=== PATIENT | male | born 1955 | race Hispanic/Latino ===

== ENCOUNTER 2017-02-22 18:14 | Emergency (ER) | payer OTHER ==
[2017-02-22 18:31] VITALS: BP 146/73; PULSE 75; RESP 20; TEMP 98.3; O2SAT 98
--- NOTE | 2017-02-22 20:12 | ED PDOC ---
HPI: Back Time Seen by Provider: 02/22/17 18:39 Chief Complaint (Nursing): Back Pain Chief Complaint (Provider): Back pain History Per: Patient History/Exam Limitations: no limitations Onset/Duration Of Symptoms: Days (1) Additional Complaint(s): Patient is a 61 y/o male with no significant past medical history presenting to the emergency department for lower right back pain that radiates to his neck and down to his feet following a fall. 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 He tried to save his fall by grabbing onto the ladder with his left arm. This motion caused him to twist his back. He landed with both feet flat on the ground and he describes the resulting back pain as a shocking and electric sensation. Denies feeling this pain previously and denies loss of consciousness , head injury, chest pain, shortness of breath, bowel or bladder incontinence, extremity weakness, or other complaints. Dr. Jama Blair Past Medical History Reviewed: Historical Data, Nursing Documentation, Vital Signs Vital Signs: Last Vital Signs Temp 98.3 F 02/22/17 18:27 Pulse 75 02/22/17 18:27 Resp 20 02/22/17 18:27 BP 146/73 02/22/17 18:27 Pulse Ox 98 02/22/17 18:27 - Medical History PMH: No Chronic Diseases - Family History Family History: States: No Known Family Hx - Home Medications Home Medications: Ambulatory Orders Medication Instructions Recorded Cyclobenzaprine [Cyclobenzaprine 10 mg PO TID PRN #15 tab 02/22/17 HCl] Meloxicam [Mobic] 15 mg PO DAILY #20 tab 02/22/17 - Allergies Allergies/Adverse Reactions: Allergies Allergy/AdvReac Type Severity Reaction Status Date / Time No Known Allergies Allergy Verified 02/22/17 18:25 Review of Systems ROS Statement: Except As Marked, All Systems Reviewed And Found Negative Cardiovascular: Negative for: Chest Pain Respiratory: Negative for: Shortness of Breath Genitourinary Male: Negative for: Incontinence (bowel or bladder) Musculoskeletal: Positive for: Back Pain (right lower that radiates to neck and feet) Neurological: Positive for: Weakness (extremity). Negative for: Other (loss of consciousness or head injury) Physical Exam - Reviewed Nursing Documentation Reviewed: Yes Vital Signs Reviewed: Yes - Physical Exam Appears: Positive for: Well, Non-toxic, Uncomfortable (mild painful distress) Head Exam: Positive for: ATRAUMATIC, NORMAL INSPECTION, NORMOCEPHALIC Skin: Positive for: Normal Color, Warm, Dry Eye Exam: Positive for: Normal appearance Neck: Positive for: Normal, Painless ROM Cardiovascular/Chest: Positive for: Regular Rate, Rhythm. Negative for: Murmur Respiratory: Positive for: Normal Breath Sounds. Negative for: Accessory Muscle Use, Respiratory Distress Gastrointestinal/Abdominal: Positive for: Soft. Negative for: Tenderness, Mass , Guarding Back: Positive for: Normal Inspection, Vertebral Tenderness (lumbar), Other ( right paralumbar tenderness). Negative for: Decreased ROM Extremity: Positive for: Normal ROM. Negative for: Tenderness, Pedal Edema, Deformity, Swelling Neurologic/Psych: Positive for: Alert, surgical first assistant II-XII, Oriented (x3), Gait. Negative for: Motor/Sensory Deficits - ECG O2 Sat by Pulse Oximetry: 98 (RA) Pulse Ox Interpretation: Normal Medical Decision Making Medical Decision Making: Time: 19:29 Initial impression: back pain Initial plan: Flexeril 10 mg PO Toradol 60 mg IM L-spine X-ray Reevaluation XR L spine : no fracture, +decrease in joint space in L5-S1, +loss of normal curvature of the spine, as read by PA Patient advised that official radiology read of XR is still pending and will call the patient if there is any discrepancy within 24 hours. On reevaluation, patient is sitting comfortably in chair in no acute distress, reports improvement of his back pain. Patient reports no headache, dizziness, chest pain, shortness of breath, lower extremity weakness or numbness, has no additional complaints at this time. X-ray results discussed with the patient in great detail. Diagnosis of sciatica and back strain discussed with the patient in great detail. Based on history, exam and diagnostic results plan will be for outpatient follow -up with PMD. Patient instructed to follow up with primary care physician in 1-2 days without fail. Advised to take medication as prescribed. Return to the emergency room at any time for any new or worsening symptoms. Patient states he fully agrees with and understands discharge instructions. States that he agrees with the plan and disposition. Verbalized and repeated discharge instructions and plan. I have given the patient opportunity to ask any additional questions. ~ Scribe Attestation: Documented by Sheila Echevarria, acting as a scribe for JULIO Ji. Provider Scribe Attestation: All medical record entries made by the Scribe were at my direction and personally dictated by me. I have reviewed the chart and agree that the record accurately reflects my personal performance of the history, physical exam, medical decision making, and the department course for this patient. I have also personally directed, reviewed, and agree with the discharge instructions and disposition. Disposition - Clinical Impression Clinical Impression: Back pain, Sciatica - Patient ED Disposition Is Patient to be Admitted: No Counseled Patient/Family Regarding: Studies Performed, Diagnosis, Need For Followup, Rx Given - Disposition Referrals: [facility] [Outside] Disposition: Routine/Home Disposition Time: 20:30 Condition: IMPROVED Prescriptions: Cyclobenzaprine [Cyclobenzaprine HCl] 10 mg PO TID PRN #15 tab PRN Reason: Muscle Spasm Meloxicam [Mobic] 15 mg PO DAILY #20 tab Instructions: Sciatica (ED), Acute Low Back Pain (ED) Forms: [employer] (Swedish), [facility] ED School/Work Excuse Print Language: CITIZEN OF [place]
--- NOTE | 2017-02-23 11:10 | RAD ---
PROCEDURE: Radiographs of the Lumbar Spine. HISTORY: pain COMPARISON: No prior. FINDINGS: BONES: No fracture. Mild multilevel vertebral body height loss. DISC SPACES: L2-3, L4-5 and L5-S1 narrowing with anterior osteophytic changes. OTHER FINDINGS: None. IMPRESSION: No acute fracture. Multilevel degenerative changes.
== END 2017-02-22 22:17 | disposition home or self-care (01) ==
LOC: H.ER 18:14
DX: S39.012A Strain of muscle, fascia and tendon of lower back, initial encounter (principal); X50.9XXA Other and unspecified overexertion or strenuous movements or postures, initial encounter; Y99.0 Civilian activity done for income or pay; M54.31 Sciatica, right side
CPT/HCPCS: 72100; 96372; 99282; J1885

== ENCOUNTER 2017-05-02 19:11 | Inpatient (IN) | payer OTHER ==
[2017-05-02 19:11] VITALS: BMI 27.4
[2017-05-02] MEDS ORDERED: Piperacillin/Tazobact 3.375 GM in Sodium Chloride 0.9% 100 ML IV ONE (20:18)
--- NOTE | 2017-05-02 20:21 | ED PDOC ---
Lower Extremity Pain/Injury Time Seen by Provider: 05/02/17 20:02 Chief Complaint (Nursing): Lower Extremity Problem/Injury Chief Complaint (Provider): right foot pain History Per: Patient, Family History/Exam Limitations: no limitations Onset/Duration Of Symptoms: Days (1 week) Current Symptoms Are (Timing): Still Present Additional Complaint(s): 62 y/o male history of hypertension, benign prostate hyperplasia and new onset diabetes presents with right foot pain x 1 week. Patient states he noticed small red spot on foot, which has since gotten progressively larger, with associated swelling to right foot. Patient was evaluated by his primary doctor Dr. Blair, and started on Augmentin without improvement. Denies fever, nausea /vomiting, numbness/weakness lower extremities, injury to foot. Past Medical History Reviewed: Historical Data, Nursing Documentation, Vital Signs Vital Signs: Last Vital Signs Temp 98.2 F 05/02/17 19:35 Pulse 74 05/02/17 19:35 Resp 16 05/02/17 19:35 BP 134/82 05/02/17 19:35 Pulse Ox 96 05/02/17 19:35 - Medical History PMH: Arthritis, Gastritis, HTN Denies: Chronic Kidney Disease - Surgical History Surgical History: Appendectomy - Family History Family History: States: No Known Family Hx - Home Medications Home Medications: Ambulatory Orders Medication Instructions Recorded Diclofenac Submicronized [Zorvolex] 35 mg PO TID 04/26/17 amLODIPine [Norvasc] 2.5 mg PO DAILY 04/26/17 Alfuzosin HCl [Alfuzosin HCl ER] 10 mg PO DAILY 05/02/17 Amoxicillin/Potassium Clav 1 tab PO DAILY 05/02/17 [Amox-Clav 875-125 mg Tablet] Ergocalciferol (Vitamin D2) 1 cap PO QWK 05/02/17 [Vitamin D2] Glipizide [Glipizide ER] 2.5 mg PO DAILY 05/02/17 Metformin ER [Glucophage XR] 500 mg PO DAILY 05/02/17 - Allergies Allergies/Adverse Reactions: Allergies Allergy/AdvReac Type Severity Reaction Status Date / Time No Known Allergies Allergy Verified 05/02/17 19:40 Review of Systems ROS Statement: Except As Marked, All Systems Reviewed And Found Negative Musculoskeletal: Positive for: Foot Pain Physical Exam - Reviewed Nursing Documentation Reviewed: Yes Vital Signs Reviewed: Yes - Physical Exam Appears: Positive for: Well, Non-toxic, No Acute Distress Head Exam: Positive for: ATRAUMATIC, NORMAL INSPECTION, NORMOCEPHALIC ENT: Positive for: Normal ENT Inspection Cardiovascular/Chest: Positive for: Regular Rate, Rhythm Respiratory: Positive for: Normal Breath Sounds Pulses-Dorsalis Pedis (L): 2+ Pulses-Dorsalis Pedis (R): 2+ Pulses-Post. Tibialis (L): 2+ Pulses-Post. Tibialis (R): 2+ Extremity: Positive for: Normal ROM, Pedal Edema (dorsal lateral right foot with edema, erythema, warm to touch. + streaking to right lateral ankle. No lesions, fluctaunce. Distal NV, motor intact), Capillary Refill (<2 sec b/l LE) Neurologic/Psych: Positive for: Alert, Oriented. Negative for: Motor/Sensory Deficits - Laboratory Results Result Diagrams: 05/02/17 21:17 05/02/17 21:17 - ECG ECG: Positive for: Viewed By Me (reviewed by ED attending) ECG Rhythm: Positive for: Sinus Rhythm O2 Sat by Pulse Oximetry: 96 Pulse Ox Interpretation: Normal - Radiology X-Ray: Viewed By Me X-Ray Interpretation: No Acute Disease - Progress ED Course And Treament: Case discussed with Dr. Blair, will order labs, arterial dopple lower extremities, and start on IV zosyn and admit for uncontrolled diabetes, and cellulitis with failed outpatient therapy. EXAM: US Duplex Bilateral Lower Extremity Arteries CLINICAL HISTORY: 62 years old, male; Pain; Leg, lower; Bilateral; Additional info: R/out pvd TECHNIQUE: Real-time ultrasound scan of the arteries of the bilateral lower extremities with 2-D magdaleno scale, color Doppler flow and spectral waveform analysis. COMPARISON: No relevant prior studies available. FINDINGS: RIGHT BOOK SOLICITOR: 108 cm/s, triphasic SFA proximal: 86 cm/s, triphasic SFA mid: 81 cm/s, triphasic SFA distal: 78 cm/s, triphasic Popliteal: 74 cm/s, triphasic NOELLE: 39 cm/s, triphasic VIDEO CONFERENCE SPECIALIST: 46 cm/s, triphasic DPA: 81 cm/s, monophasic LEFT BOOK SOLICITOR: 119 cm/s, triphasic SFA proximal: 59 cm/s, triphasic SFA mid: 72 cm/s, triphasic SFA distal: 68 cm/s, triphasic Popliteal: 59 cm/s, triphasic NOELLE: 59 cm/s, triphasic VIDEO CONFERENCE SPECIALIST: 85 cm/s, triphasic DPA: 24 cm/s, biphasic IMPRESSION: No occlusion or significant stenosis Disposition - Clinical Impression Clinical Impression: Cellulitis of foot, New onset type 2 diabetes mellitus - Patient ED Disposition Is Patient to be Admitted: Yes - Disposition Disposition Time: 22:40 Condition: FAIR
[2017-05-02] MEDS ORDERED: Piperacillin/Tazobact 3.375 gm Inj IVPB ONE (21:19)
[2017-05-02 22:06] LABS: VENOUS BLOOD GAS BASE EXCESS 2.6 mmol/L (0.0-2.0); VENOUS BLOOD GAS PCO2 41 mmHg (40-60); VENOUS BLOOD GAS PO2 38 mm/Hg (30-55); VENOUS BLOOD PH 7.43 (7.32-7.43)
--- NOTE | 2017-05-02 22:21 | US ---
EXAM: US Duplex Bilateral Lower Extremity Arteries CLINICAL HISTORY: 62 years old, male; Pain; Leg, lower; Bilateral; Additional info: R/out pvd TECHNIQUE: Real-time ultrasound scan of the arteries of the bilateral lower extremities with 2-D magdaleno scale, color Doppler flow and spectral waveform analysis. COMPARISON: No relevant prior studies available. FINDINGS: RIGHT CONSTRUCTION ECONOMIST: 108 cm/s, triphasic SFA proximal: 86 cm/s, triphasic SFA mid: 81 cm/s, triphasic SFA distal: 78 cm/s, triphasic Popliteal: 74 cm/s, triphasic NOELLE: 39 cm/s, triphasic BANQUET LEAD: 46 cm/s, triphasic DPA: 81 cm/s, monophasic LEFT CONSTRUCTION ECONOMIST: 119 cm/s, triphasic SFA proximal: 59 cm/s, triphasic SFA mid: 72 cm/s, triphasic SFA distal: 68 cm/s, triphasic Popliteal: 59 cm/s, triphasic NOELLE: 59 cm/s, triphasic BANQUET LEAD: 85 cm/s, triphasic DPA: 24 cm/s, biphasic IMPRESSION: No occlusion or significant stenosis.
[2017-05-02 22:26] LABS: BASO # 0.1 K/uL (0.0-0.2); BASO % 1.2 % (0.0-2.0); EOS # 0.1 K/uL (0.0-0.7); EOS % 1.4 % (0.0-4.0); LYMPH # 2.8 K/uL (1.0-4.3); LYMPH % 39.6 % (20.0-40.0); MEAN CELL VOLUME 95.1 fl (80.0-94.0); MEAN CORPUSCULAR HEMOGLOBIN 32.7 pg (27.0-31.0); MEAN CORPUSCULAR HGB CONC 34.3 g/dL (33.0-37.0); MEAN PLATELET VOLUME 9.4 fl (7.2-11.7); MONO # 0.7 K/uL (0.0-0.8); MONO % 9.9 % (0.0-10.0); NEUT # 3.4 K/uL (1.8-7.0); NEUT % 47.9 % (50.0-75.0); NRBC % 0.1 % (0.0-0.0); RBC 4.3 Mil/uL (4.40-5.90); RED CELL DISTRIBUTION WIDTH 13.4 % (11.5-14.5); WHITE BLOOD COUNT 7.1 K/uL (4.8-10.8)
[2017-05-02 22:40] LABS: ALB/GLOB RATIO 1.2 (1.0-2.1); ALBUMIN 4.2 g/dL (3.5-5.0); ALT/SGPT 108 U/L (21-72); AST/SGOT 54 U/L (17-59); BLOOD UREA NITROGEN 15 mg/dl (9-20); CALCIUM 9.2 mg/dL (8.4-10.2); GFR AFRICAN-AMERICAN > 60; GFR NON-AFRICAN AMERICAN > 60
[2017-05-03 00:58] LABS: SQUAMOUS EPITHIAL < 1 /hpf (0-5); URINE BILIRUBIN NEGATIVE (NEGATIVE); URINE BLOOD NEGATIVE (NEGATIVE); URINE CLARITY CLEAR (Clear); URINE COLOR YELLOW (YELLOW); URINE GLUCOSE (UA) NEG (Normal); URINE LEUKOCYTE ESTERASE NEG Leu/uL (Negative); URINE PROTEIN NEGATIVE (NEGATIVE); URINE UROBILINOGEN 0.2-1.0 mg/dL (0.2-1.0)
[2017-05-03] MEDS: Enoxaparin 40 mg Syringe SC SCH ×2 (01:16→17:19)
[2017-05-03 08:18] LABS: BASO # 0.1 K/uL (0.0-0.2); BASO % 1.1 % (0.0-2.0); EOS # 0.1 K/uL (0.0-0.7); EOS % 1.9 % (0.0-4.0); HEMOGLOBIN 13.7 g/dL (12.0-18.0); LYMPH # 2.1 K/uL (1.0-4.3); LYMPH % 29.6 % (20.0-40.0); MEAN CELL VOLUME 95.1 fl (80.0-94.0); MEAN CORPUSCULAR HEMOGLOBIN 32.8 pg (27.0-31.0); MEAN CORPUSCULAR HGB CONC 34.4 g/dL (33.0-37.0); MONO # 0.7 K/uL (0.0-0.8); MONO % 10.4 % (0.0-10.0); RBC 4.18 Mil/uL (4.40-5.90); RED CELL DISTRIBUTION WIDTH 13.2 % (11.5-14.5); WHITE BLOOD COUNT 7.1 K/uL (4.8-10.8)
[2017-05-03 08:25] LABS: BLOOD UREA NITROGEN 18 mg/dl (9-20); GFR AFRICAN-AMERICAN > 60; GFR NON-AFRICAN AMERICAN > 60
[2017-05-03] MEDS: Insulin Regular 100 units/ml SC SCH ×4 (08:32→22:27)
[2017-05-03] MEDS ORDERED: Patient's Own Med (Metformin Er [Glucophage Xr] 500 mg) PO SCH (09:00)
[2017-05-03] MEDS ORDERED: Piperacillin/Tazobact 3.375 GM in Sodium Chloride 0.9% 100 ML IVPB SCH (09:00)
[2017-05-03] MEDS ORDERED: GlipiZIDE 2.5 mg SR Tab PO SCH ×2 (09:00→16:30)
--- NOTE | 2017-05-03 09:28 | RAD ---
HISTORY: admit COMPARISON: 04/03/2016 FINDINGS: LUNGS: No active pulmonary disease. PLEURA: No significant pleural effusion identified, no pneumothorax apparent. CARDIOVASCULAR: Normal. OSSEOUS STRUCTURES: No significant abnormalities. VISUALIZED UPPER ABDOMEN: Normal. OTHER FINDINGS: None. IMPRESSION: No active disease.
--- NOTE | 2017-05-03 12:12 | CP.PCM.HP ---
History of Present Illness - History of Present Illness History of Present Illness: Patient is a pleasant 62 y/o gentleman with hx of new onset on DM, lumbago, cervicalgia, gout, presented in ER with rt foot pain. He was stared on anti inflammatory and antibx medication with no improvement of his condition. The day of admission he c/o severe pain in the rt foot. An xray did not revelled any fracture. He has a persistent erythema, tender. Since he was not responded to oral rx he was advised to go to ER for further investigation. Present on Admission - Present on Admission Any Indicators Present on Admission: No Review of Systems - Constitutional Constitutional: As Per HPI - EENT Eyes: As Per HPI - Cardiovascular Cardiovascular: As Per HPI - Respiratory Respiratory: As Per HPI - Gastrointestinal Gastrointestinal: As Per HPI - Musculoskeletal Musculoskeletal: As Per HPI - Integumentary Integumentary: As Per HPI - Neurological Neurological: As Per HPI - Psychiatric Psychiatric: As Per HPI Past Patient History - Past Medical History & Family History Past Medical History?: Yes - Past Social History Smoking Status: Former Smoker - CARDIAC Hx Cardiac Disorders: Yes Hx Hypertension: Yes - PULMONARY Hx Respiratory Disorders: No - NEUROLOGICAL Hx Neurological Disorder: No - HEENT Hx HEENT Problems: No - RENAL Hx Chronic Kidney Disease: No - ENDOCRINE/METABOLIC Hx Endocrine Disorders: No - HEMATOLOGICAL/ONCOLOGICAL Hx Blood Disorders: No - INTEGUMENTARY Hx Dermatological Problems: No - MUSCULOSKELETAL/RHEUMATOLOGICAL Hx Musculoskeletal Disorders: No Hx Falls: No - GASTROINTESTINAL Hx Gastrointestinal Disorders: Yes Hx Gastritis: Yes - GENITOURINARY/GYNECOLOGICAL Hx Genitourinary Disorders: No - PSYCHIATRIC Hx Psychophysiologic Disorder: No Hx Substance Use: No - SURGICAL HISTORY Hx Surgeries: Yes Hx Appendectomy: Yes - ANESTHESIA Hx Anesthesia: Yes Hx Anesthesia Reactions: No Hx Malignant Hyperthermia: No Meds Allergies/Adverse Reactions: Allergies Allergy/AdvReac Type Severity Reaction Status Date / Time No Known Allergies Allergy Verified 05/02/17 19:40 Physical Exam - Constitutional Appears: Non-toxic - Head Exam Head Exam: ATRAUMATIC, NORMAL INSPECTION, NORMOCEPHALIC - Eye Exam Eye Exam: Normal appearance, PERRL - ENT Exam ENT Exam: Mucous Membranes Moist, Normal Exam - Respiratory Exam Respiratory Exam: Clear to Auscultation Bilateral - Cardiovascular Exam Cardiovascular Exam: REGULAR RHYTHM, +S1, +S2 - GI/Abdominal Exam GI & Abdominal Exam: Normal Bowel Sounds - Neurological Exam Neurological exam: Abnormal Gait, Alert, CN II-XII Intact, Oriented x3 - Psychiatric Exam Psychiatric exam: Normal Affect - Skin Skin Exam: Normal Color Results - Vital Signs Recent Vital Signs: Last Vital Signs Temp 98.2 F 05/03/17 08:05 Pulse 67 05/03/17 08:29 Resp 20 05/03/17 08:05 BP 132/76 05/03/17 08:29 Pulse Ox 95 05/03/17 08:05 - Labs Result Diagrams: 05/03/17 07:30 05/03/17 07:30 Labs: Laboratory Results - last 24 hr 05/02/17 05/02/17 05/02/17 21:17 21:17 21:17 WBC 7.1 RBC 4.30 L Hgb 14.0 Hct 40.9 MCV 95.1 H MCH 32.7 H MCHC 34.3 RDW 13.4 Plt Count 183 MPV 9.4 Neut % (Auto) 47.9 L Lymph % (Auto) 39.6 [place] % (Auto) 9.9 Eos % (Auto) 1.4 Baso % (Auto) 1.2 Neut # (Auto) 3.4 Lymph # (Auto) 2.8 [place] # (Auto) 0.7 Eos # (Auto) 0.1 Baso # (Auto) 0.1 ESR pO2 38 VBG pH 7.43 VBG pCO2 41 VBG HCO3 26.4 VBG Total CO2 28.5 H VBG O2 Sat (Calc) 81.1 H VBG Base Excess 2.6 H VBG Potassium 3.8 Sodium 140 139.0 Chloride 104 104.0 Glucose 138 H Lactate 1.8 FiO2 21.0 Potassium 3.8 Carbon Dioxide 24 Anion Gap 16 BUN 15 Creatinine 0.8 Est GFR ( Amer) > 60 Est GFR (Non-Af Amer) > 60 POC Glucose (mg/dL) Random Glucose 132 H Hemoglobin A1c Uric Acid Calcium 9.2 Total Bilirubin 0.4 AST 54 ALT 108 H Alkaline Phosphatase 115 Total Protein 7.8 Albumin 4.2 Globulin 3.6 Albumin/Globulin Ratio 1.2 Vitamin B12 TSH 3rd Generation Venous Blood Potassium 3.8 Urine Color Urine Clarity Urine pH Ur Specific [place] Urine Protein Urine Glucose (UA) Urine Ketones Urine Blood Urine Nitrate Urine Bilirubin Urine Urobilinogen Ur Leukocyte Esterase Urine RBC (Auto) Urine Microscopic WBC Ur Squamous Epith Cells 05/02/17 05/03/17 05/03/17 22:04 00:37 00:37 WBC RBC Hgb Hct MCV MCH MCHC RDW Plt Count MPV Neut % (Auto) Lymph % (Auto) [place] % (Auto) Eos % (Auto) Baso % (Auto) Neut # (Auto) Lymph # (Auto) [place] # (Auto) Eos # (Auto) Baso # (Auto) ESR 29 H pO2 VBG pH VBG pCO2 VBG HCO3 VBG Total CO2 VBG O2 Sat (Calc) VBG Base Excess VBG Potassium Sodium Chloride Glucose Lactate FiO2 Potassium Carbon Dioxide Anion Gap BUN Creatinine Est GFR ( Amer) Est GFR (Non-Af Amer) POC Glucose (mg/dL) 125 H Random Glucose Hemoglobin A1c Uric Acid Calcium Total Bilirubin AST ALT Alkaline Phosphatase Total Protein Albumin Globulin Albumin/Globulin Ratio Vitamin B12 502 TSH 3rd Generation 2.82 Venous Blood Potassium Urine Color Urine Clarity Urine pH Ur Specific [place] Urine Protein Urine Glucose (UA) Urine Ketones Urine Blood Urine Nitrate Urine Bilirubin Urine Urobilinogen Ur Leukocyte Esterase Urine RBC (Auto) Urine Microscopic WBC Ur Squamous Epith Cells 05/03/17 05/03/17 05/03/17 00:37 00:45 05:31 WBC RBC Hgb Hct MCV MCH MCHC RDW Plt Count MPV Neut % (Auto) Lymph % (Auto) [place] % (Auto) Eos % (Auto) Baso % (Auto) Neut # (Auto) Lymph # (Auto) [place] # (Auto) Eos # (Auto) Baso # (Auto) ESR pO2 VBG pH VBG pCO2 VBG HCO3 VBG Total CO2 VBG O2 Sat (Calc) VBG Base Excess VBG Potassium Sodium Chloride Glucose Lactate FiO2 Potassium Carbon Dioxide Anion Gap BUN Creatinine Est GFR ( Amer) Est GFR (Non-Af Amer) POC Glucose (mg/dL) 140 H Random Glucose Hemoglobin A1c 9.9 H Uric Acid Calcium Total Bilirubin AST ALT Alkaline Phosphatase Total Protein Albumin Globulin Albumin/Globulin Ratio Vitamin B12 TSH 3rd Generation Venous Blood Potassium Urine Color Yellow Urine Clarity Clear Urine pH 5.0 Ur Specific [place] 1.016 Urine Protein Negative Urine Glucose (UA) Neg Urine Ketones Negative Urine Blood Negative Urine Nitrate Negative Urine Bilirubin Negative Urine Urobilinogen 0.2-1.0 Ur Leukocyte Esterase Neg Urine RBC (Auto) 3 Urine Microscopic WBC 1 Ur Squamous Epith Cells < 1 05/03/17 05/03/17 05/03/17 07:30 07:30 10:19 WBC 7.1 RBC 4.18 L Hgb 13.7 Hct 39.8 MCV 95.1 H MCH 32.8 H MCHC 34.4 RDW 13.2 Plt Count 172 MPV 9.0 Neut % (Auto) 57.0 Lymph % (Auto) 29.6 [place] % (Auto) 10.4 H Eos % (Auto) 1.9 Baso % (Auto) 1.1 Neut # (Auto) 4.0 Lymph # (Auto) 2.1 [place] # (Auto) 0.7 Eos # (Auto) 0.1 Baso # (Auto) 0.1 ESR pO2 VBG pH VBG pCO2 VBG HCO3 VBG Total CO2 VBG O2 Sat (Calc) VBG Base Excess VBG Potassium Sodium 142 Chloride 104 Glucose Lactate FiO2 Potassium 4.0 Carbon Dioxide 25 Anion Gap 17 BUN 18 Creatinine 1.0 Est GFR ( Amer) > 60 Est GFR (Non-Af Amer) > 60 POC Glucose (mg/dL) Random Glucose 153 H Hemoglobin A1c Uric Acid 5.5 Calcium 9.0 Total Bilirubin AST ALT Alkaline Phosphatase Total Protein Albumin Globulin Albumin/Globulin Ratio Vitamin B12 TSH 3rd Generation Venous Blood Potassium Urine Color Urine Clarity Urine pH Ur Specific [place] Urine Protein Urine Glucose (UA) Urine Ketones Urine Blood Urine Nitrate Urine Bilirubin Urine Urobilinogen Ur Leukocyte Esterase Urine RBC (Auto) Urine Microscopic WBC Ur Squamous Epith Cells 05/03/17 11:01 WBC RBC Hgb Hct MCV MCH MCHC RDW Plt Count MPV Neut % (Auto) Lymph % (Auto) [place] % (Auto) Eos % (Auto) Baso % (Auto) Neut # (Auto) Lymph # (Auto) [place] # (Auto) Eos # (Auto) Baso # (Auto) ESR pO2 VBG pH VBG pCO2 VBG HCO3 VBG Total CO2 VBG O2 Sat (Calc) VBG Base Excess VBG Potassium Sodium Chloride Glucose Lactate FiO2 Potassium Carbon Dioxide Anion Gap BUN Creatinine Est GFR ( Amer) Est GFR (Non-Af Amer) POC Glucose (mg/dL) 249 H Random Glucose Hemoglobin A1c Uric Acid Calcium Total Bilirubin AST ALT Alkaline Phosphatase Total Protein Albumin Globulin Albumin/Globulin Ratio Vitamin B12 TSH 3rd Generation Venous Blood Potassium Urine Color Urine Clarity Urine pH Ur Specific [place] Urine Protein Urine Glucose (UA) Urine Ketones Urine Blood Urine Nitrate Urine Bilirubin Urine Urobilinogen Ur Leukocyte Esterase Urine RBC (Auto) Urine Microscopic WBC Ur Squamous Epith Cells Assessment & Plan (1) Gout attack Status: Suspected (2) Gout Status: Chronic (3) Cellulitis of foot Status: Suspected (4) New onset type 2 diabetes mellitus Status: Acute (5) Back pain Status: Chronic (6) Sciatica Status: Chronic - Assessment and Plan (Free Text) Plan: As per orders. Continue present rx
--- NOTE | 2017-05-03 12:19 | CP.PCM.CON ---
History of Present Illness - History of Present Illness History of Present Illness: Podiatry Consult Note- Dr. Johnson 62 y.o male with PMH of DM and gout consulted for right foot cellulitis. Recently diagnosed with DM less than 1 week ago. Seen at bedside with family. Patient reports having pain to this right foot for 1 week. Patient denies of any falls or trauma. Then, 3 days ago noticed a small red patch that has gotten bigger. Denies having any cuts, abrasions- wounds. Reports the pain today is much better compared to yesterday. Reports before the pain was 10/10 on VAS scale; the lightest touch even bed sheets causes him to jump. He reports the redness has gone down as well. He describes the pain as being a throbbing pain and localized to the red patch. Patient denies nausea, fever, shortness of breath, chest pains, or chills. PMD: Dr. Blair PMH: DM and gout PSH: appendectomy SH: former smoker (6 cigarettes/day 15 years), stopped in 1986, socially drinks , denies illicit drug use ALL: NKDA MEDS: see MAR list FH: denies Past Patient History - Past Medical History & Family History Past Medical History?: Yes - Past Social History Smoking Status: Former Smoker - CARDIAC Hx Cardiac Disorders: Yes Hx Hypertension: Yes - PULMONARY Hx Respiratory Disorders: No - NEUROLOGICAL Hx Neurological Disorder: No - HEENT Hx HEENT Problems: No - RENAL Hx Chronic Kidney Disease: No - ENDOCRINE/METABOLIC Hx Endocrine Disorders: No - HEMATOLOGICAL/ONCOLOGICAL Hx Blood Disorders: No - INTEGUMENTARY Hx Dermatological Problems: No - MUSCULOSKELETAL/RHEUMATOLOGICAL Hx Musculoskeletal Disorders: No Hx Falls: No - GASTROINTESTINAL Hx Gastrointestinal Disorders: Yes Hx Gastritis: Yes - GENITOURINARY/GYNECOLOGICAL Hx Genitourinary Disorders: No - PSYCHIATRIC Hx Psychophysiologic Disorder: No Hx Substance Use: No - SURGICAL HISTORY Hx Surgeries: Yes Hx Appendectomy: Yes - ANESTHESIA Hx Anesthesia: Yes Hx Anesthesia Reactions: No Hx Malignant Hyperthermia: No Meds Allergies/Adverse Reactions: Allergies Allergy/AdvReac Type Severity Reaction Status Date / Time No Known Allergies Allergy Verified 05/02/17 19:40 - Medications Medications: Current Medications Amlodipine Besylate (Norvasc) 2.5 mg PO DAILY [facility] Last Admin: 05/03/17 08:29 Dose: 2.5 mg Enoxaparin Sodium (Lovenox) 40 mg SC DAILY [facility] PRN Reason: Protocol Last Admin: 05/03/17 01:16 Dose: 40 mg Famotidine (Pepcid) 20 mg PO BID [facility] Glipizide (Glucotrol Xl) 2.5 mg PO DAILY [facility] Last Admin: 05/03/17 08:32 Dose: 2.5 mg Piperacillin Sod/Tazobactam (Sod 3.375 gm/ Sodium Chloride) 100 mls @ 100 mls/ hr IVPB Q12 [facility] PRN Reason: Protocol Indomethacin (Indocin) 50 mg PO TID [facility] Insulin Human Regular (Humulin R) 0 units SC ACHS [facility] PRN Reason: Protocol Last Admin: 05/03/17 08:32 Dose: Not Given Metformin HCl (Glucophage) 500 mg PO DAILY [facility] Last Admin: 05/03/17 08:29 Dose: 500 mg Physical Exam - Constitutional Appears: Well, Non-toxic, No Acute Distress - Extremities Exam Extremities exam: Negative for: calf tenderness Additional comments: Vasc: DP and PT 2/4 bilaterally, CFT < 3 seconds x10 digits, R LE is warm to warm, L LE is warm to cool from proximal knees to distal toes, increase warmth to the right foot Ortho: pain with palpation to the skin lesion, no pain tata skin surrounding lesion, no pain appreciated with ankle ROM, no pain with 1st MPJ ROM, no pain with peroneals, no pain with palpation along route of the long and short extensors, no pain with passive stretching of the extensors, MM is 5/5 in all four compartments Neuro: protective and gross sensation intact bilaterally Derm: erythematous lesion noted to the right foot dorsal laterally measuring approximately 6 x 4 cm. No streaking appreciated, no open lesions, no abscess, no fluctuance, no drainage, no purulence - Neurological Exam Neurological exam: Alert, Oriented x3 - Psychiatric Exam Psychiatric exam: Normal Affect, Normal Mood Results - Vital Signs Recent Vital Signs: Last Vital Signs Temp 98.2 F 05/03/17 08:05 Pulse 67 05/03/17 08:29 Resp 20 05/03/17 08:05 BP 132/76 05/03/17 08:29 Pulse Ox 95 05/03/17 08:05 - Labs Result Diagrams: 05/03/17 07:30 03/29/18 07:30 Labs: Laboratory Results - last 24 hr 05/02/17 05/02/17 05/02/17 21:17 21:17 21:17 WBC 7.1 RBC 4.30 L Hgb 14.0 Hct 40.9 MCV 95.1 H MCH 32.7 H MCHC 34.3 RDW 13.4 Plt Count 183 MPV 9.4 Neut % (Auto) 47.9 L Lymph % (Auto) 39.6 Jennings % (Auto) 9.9 Eos % (Auto) 1.4 Baso % (Auto) 1.2 Neut # (Auto) 3.4 Lymph # (Auto) 2.8 Jennings # (Auto) 0.7 Eos # (Auto) 0.1 Baso # (Auto) 0.1 ESR pO2 38 VBG pH 7.43 VBG pCO2 41 VBG HCO3 26.4 VBG Total CO2 28.5 H VBG O2 Sat (Calc) 81.1 H VBG Base Excess 2.6 H VBG Potassium 3.8 Sodium 140 139.0 Chloride 104 104.0 Glucose 138 H Lactate 1.8 FiO2 21.0 Potassium 3.8 Carbon Dioxide 24 Anion Gap 16 BUN 15 Creatinine 0.8 Est GFR ( Amer) > 60 Est GFR (Non-Af Amer) > 60 POC Glucose (mg/dL) Random Glucose 132 H Hemoglobin A1c Uric Acid Calcium 9.2 Total Bilirubin 0.4 AST 54 ALT 108 H Alkaline Phosphatase 115 Total Protein 7.8 Albumin 4.2 Globulin 3.6 Albumin/Globulin Ratio 1.2 Vitamin B12 TSH 3rd Generation Venous Blood Potassium 3.8 Urine Color Urine Clarity Urine pH Ur Specific Basalt Urine Protein Urine Glucose (UA) Urine Ketones Urine Blood Urine Nitrate Urine Bilirubin Urine Urobilinogen Ur Leukocyte Esterase Urine RBC (Auto) Urine Microscopic WBC Ur Squamous Epith Cells 05/02/17 05/03/17 05/03/17 22:04 00:37 00:37 WBC RBC Hgb Hct MCV MCH MCHC RDW Plt Count MPV Neut % (Auto) Lymph % (Auto) Jennings % (Auto) Eos % (Auto) Baso % (Auto) Neut # (Auto) Lymph # (Auto) Jennings # (Auto) Eos # (Auto) Baso # (Auto) ESR 29 H pO2 VBG pH VBG pCO2 VBG HCO3 VBG Total CO2 VBG O2 Sat (Calc) VBG Base Excess VBG Potassium Sodium Chloride Glucose Lactate FiO2 Potassium Carbon Dioxide Anion Gap BUN Creatinine Est GFR ( Amer) Est GFR (Non-Af Amer) POC Glucose (mg/dL) 125 H Random Glucose Hemoglobin A1c Uric Acid Calcium Total Bilirubin AST ALT Alkaline Phosphatase Total Protein Albumin Globulin Albumin/Globulin Ratio Vitamin B12 502 TSH 3rd Generation 2.82 Venous Blood Potassium Urine Color Urine Clarity Urine pH Ur Specific Basalt Urine Protein Urine Glucose (UA) Urine Ketones Urine Blood Urine Nitrate Urine Bilirubin Urine Urobilinogen Ur Leukocyte Esterase Urine RBC (Auto) Urine Microscopic WBC Ur Squamous Epith Cells 05/03/17 05/03/17 05/03/17 00:37 00:45 05:31 WBC RBC Hgb Hct MCV MCH MCHC RDW Plt Count MPV Neut % (Auto) Lymph % (Auto) Jennings % (Auto) Eos % (Auto) Baso % (Auto) Neut # (Auto) Lymph # (Auto) Jennings # (Auto) Eos # (Auto) Baso # (Auto) ESR pO2 VBG pH VBG pCO2 VBG HCO3 VBG Total CO2 VBG O2 Sat (Calc) VBG Base Excess VBG Potassium Sodium Chloride Glucose Lactate FiO2 Potassium Carbon Dioxide Anion Gap BUN Creatinine Est GFR ( Amer) Est GFR (Non-Af Amer) POC Glucose (mg/dL) 140 H Random Glucose Hemoglobin A1c 9.9 H Uric Acid Calcium Total Bilirubin AST ALT Alkaline Phosphatase Total Protein Albumin Globulin Albumin/Globulin Ratio Vitamin B12 TSH 3rd Generation Venous Blood Potassium Urine Color Yellow Urine Clarity Clear Urine pH 5.0 Ur Specific Basalt 1.016 Urine Protein Negative Urine Glucose (UA) Neg Urine Ketones Negative Urine Blood Negative Urine Nitrate Negative Urine Bilirubin Negative Urine Urobilinogen 0.2-1.0 Ur Leukocyte Esterase Neg Urine RBC (Auto) 3 Urine Microscopic WBC 1 Ur Squamous Epith Cells < 1 05/03/17 05/03/17 05/03/17 07:30 07:30 10:19 WBC 7.1 RBC 4.18 L Hgb 13.7 Hct 39.8 MCV 95.1 H MCH 32.8 H MCHC 34.4 RDW 13.2 Plt Count 172 MPV 9.0 Neut % (Auto) 57.0 Lymph % (Auto) 29.6 Jennings % (Auto) 10.4 H Eos % (Auto) 1.9 Baso % (Auto) 1.1 Neut # (Auto) 4.0 Lymph # (Auto) 2.1 Jennings # (Auto) 0.7 Eos # (Auto) 0.1 Baso # (Auto) 0.1 ESR pO2 VBG pH VBG pCO2 VBG HCO3 VBG Total CO2 VBG O2 Sat (Calc) VBG Base Excess VBG Potassium Sodium 142 Chloride 104 Glucose Lactate FiO2 Potassium 4.0 Carbon Dioxide 25 Anion Gap 17 BUN 18 Creatinine 1.0 Est GFR ( Amer) > 60 Est GFR (Non-Af Amer) > 60 POC Glucose (mg/dL) Random Glucose 153 H Hemoglobin A1c Uric Acid 5.5 Calcium 9.0 Total Bilirubin AST ALT Alkaline Phosphatase Total Protein Albumin Globulin Albumin/Globulin Ratio Vitamin B12 TSH 3rd Generation Venous Blood Potassium Urine Color Urine Clarity Urine pH Ur Specific Basalt Urine Protein Urine Glucose (UA) Urine Ketones Urine Blood Urine Nitrate Urine Bilirubin Urine Urobilinogen Ur Leukocyte Esterase Urine RBC (Auto) Urine Microscopic WBC Ur Squamous Epith Cells 05/03/17 11:01 WBC RBC Hgb Hct MCV MCH MCHC RDW Plt Count MPV Neut % (Auto) Lymph % (Auto) Jennings % (Auto) Eos % (Auto) Baso % (Auto) Neut # (Auto) Lymph # (Auto) Jennings # (Auto) Eos # (Auto) Baso # (Auto) ESR pO2 VBG pH VBG pCO2 VBG HCO3 VBG Total CO2 VBG O2 Sat (Calc) VBG Base Excess VBG Potassium Sodium Chloride Glucose Lactate FiO2 Potassium Carbon Dioxide Anion Gap BUN Creatinine Est GFR ( Amer) Est GFR (Non-Af Amer) POC Glucose (mg/dL) 249 H Random Glucose Hemoglobin A1c Uric Acid Calcium Total Bilirubin AST ALT Alkaline Phosphatase Total Protein Albumin Globulin Albumin/Globulin Ratio Vitamin B12 TSH 3rd Generation Venous Blood Potassium Urine Color Urine Clarity Urine pH Ur Specific Basalt Urine Protein Urine Glucose (UA) Urine Ketones Urine Blood Urine Nitrate Urine Bilirubin Urine Urobilinogen Ur Leukocyte Esterase Urine RBC (Auto) Urine Microscopic WBC Ur Squamous Epith Cells Assessment & Plan - Assessment and Plan (Free Text) Assessment: 62 y.o male with PMH of DM and gout with possible right foot likely acute gout flare up Plan: Patient examined and evaluated Discussed plan in detail with attending Dr. Johnson Charts, labs, vitals reviewed Ordered X-rays f/u MRI f/u repeat uric acid Recommend Naproxen or Indomethacin, combned with Colcrys .6mg, two tabs PO and then one tab one hour later Redness has gone down per patient, will continue to monitor for changes Will follow patient while in house Thank you for allowing us to take part in patients care
[2017-05-03 12:49] LABS: FOLATE 19.9 ng/mL
[2017-05-03] MEDS ORDERED: Gadodiamide 287 MG/ML VIAL (15ML) IV ONE (12:49)
--- NOTE | 2017-05-03 14:46 | CON ---
DATE: 05/03/2017 NEUROLOGY CONSULTATION CHIEF COMPLAINT: Evaluation for neuropathy. HISTORY OF PRESENT ILLNESS: This is a 62-year-old man with history of new onset diabetes mellitus and history of gout, who presented having right foot pain for the past 1 week without any falls or trauma. Three days ago, he noticed a small red patch that has been gotten bigger. Denies any cuts or abrasion of the wound and rates the pain is 10/10 and intensity but was much better today. The lightest touch of sheet even cause him to jump. His redness has gotten slightly down as well. He was a former smoker, stopped smoking years ago. He does have erythematous lesion noted in the right foot dorsolateral measuring 6 x 4 cm, no streaking, no abscess. No drainage. Uric acid level is normal, but he has hemoglobin A1c of 9.9 indicating poorly controlled diabetes. His was 502. No focal weakness of the extremities. No evidence of any dorsiflexion weakness. PAST MEDICAL HISTORY: Type 2 diabetes mellitus and history of gout. SOCIAL HISTORY: No illicit drug use, smoking or EtOH abuse, he was a former smoker where he used to smoke 6 cigarettes per day for the past . Socially drinks, denies any illicit drug use. ALLERGIES: NO KNOWN DRUG ALLERGIES. MEDICATIONS: Reviewed by nurse reconciliation sheet. REVIEW OF SYSTEMS: A 14-point review of systems negative except in the HPI. PHYSICAL EXAMINATION: VITAL SIGNS: Temperature 98.2, pulse rate 67, blood pressure 132/76, respiratory rate 20, and oxygen saturations 95% by room air. GENERAL: The patient is sitting up in bed, in no acute distress. HEENT: Atraumatic and normocephalic. PERRLA. Extraocular muscles intact. NECK: Supple. No JVD. No adenopathy noted. LUNGS: Clear to auscultation. No adventitious sounds. HEART: S1 and S2. Normal rate and rhythm. No murmurs, rubs or gallops. ABDOMEN: Soft, nontender, and nondistended. Bowel sounds are present. EXTREMITIES: No clubbing. No cyanosis. Peripheral pulses are 2+ felt bilaterally. He has an erythematous lesion on the right foot dorsolateral measuring 6 x 4 cm. No open lesions. No abscess, no drainage seen. No pain appreciated on the ankle range of movement, but no pain on the first metacarpal joint. NEUROLOGIC: The patient is alert and oriented to person, place, month, and year. Speech is fluent without errors. Cranial nerves II-XII are intact. Motor exam: Moves all extremities equally. Toes are downgoing bilaterally. Sensory: Light touch, pinprick, proprioception, and vibration are intact. DTRs are 2+ throughout and 1 at the both ankles. Coordination: [id number] intact. Gait is deferred for now. LABORATORY DATA: Alc is 9.9. Sodium of 142, potassium of 4, chloride of 104, carbon dioxide of 25, BUN of 17, creatinine of 18, and random glucose of 153. Uric acid level of 5.5. ASSESSMENT AND PLAN: This is a 62-year-old male with history of type 2 diabetes mellitus with A1c of 9.9 indicating poorly controlled diabetes, history of gout who presented with right foot redness and swelling and right foot pain. This could be likely secondary to underlying right foot cellulitis, superimposed underlying peripheral neuropathy, diabetic type. At this time, recommend: 1. Continue indomethacin 50 mg p.o. t.i.d. for acute onset of pain. 2. Keep blood sugars between 140 to 180 and needs a diabetic diet and better glucose control. 3. Recommend Lyrica 50 mg p.o. b.i.d. for neuropathic relief. 4. He is undergoing MRI of the foot to rule out any soft tissue abnormalities or osteomyelitis. 5. Continue with Podiatry recommendations. Thank you for this consult. Dov Fairbanks MD
--- NOTE | 2017-05-03 15:38 | MRI ---
MRI right foot History: Pain and discoloration. Comparison: None available. Technique: Multi-echo multiplanar sequences were performed through the right foot without and with the use of intravenous contrast. Findings: Prominent soft tissue swelling and edema seen within the dorsal lateral subcutaneous soft tissues of the left foot which may represent an underlying cellulitis. Degenerative changes noted at the bases of the 2nd and 3rd metatarsal bones and corresponding middle and lateral cuneiform bones suggestive for osteochondral change. Mild hallux valgus deformity. Mild tenosynovitis of the posterior tibial tendon sheath. Failure of fat suppression on the post-contrast sequences, limit evaluation. Achilles tendon is preserved. Mild thickening of the plantar fascia measuring up to 8 millimeters may represent a mild plantar fascitis. Sinus tarsi is preserved. No significant ankle joint effusion. Deltoid ligament is preserved. Impression: 1. Prominent soft tissue swelling and edema seen within the dorsal lateral subcutaneous soft tissues of the left foot which may represent an underlying cellulitis. 2. Degenerative changes noted at the bases of the 2nd and 3rd metatarsal bones and corresponding middle and lateral cuneiform bones suggestive for osteochondral change. 3. Mild hallux valgus deformity. 4. Mild tenosynovitis of the posterior tibial tendon sheath. 5. Failure of fat suppression on the post-contrast sequences, limit evaluation. 6. Mild thickening of the plantar fascia measuring up to 8 millimeters may represent a mild plantar fascitis. If symptoms persists, consider further evaluation with follow-up MRI and or 3 phase bone scan.
--- NOTE | 2017-05-03 18:34 | CARD ---
APPROVED REPORT EKG Measurement Heart [id number] <Conclusion> Normal sinus rhythm Normal ECG
--- NOTE | 2017-05-03 18:56 | CP.PCM.CON ---
History of Present Illness - History of Present Illness History of Present Illness: 62 y.o male with PMH of DM and gout consulted for right foot cellulitis. Recently diagnosed with DM less than 1 week ago. Seen at bedside with family. Patient reports having pain to this right foot for 1 week. Patient denies of any falls or trauma. Then, 3 days ago noticed a small red patch that has gotten bigger. Denies having any cuts, abrasions- wounds. Reports the pain today is much better compared to yesterday. id CONSULTED FOR ANTIBIOTICS PMD: Dr. Blair PMH: DM and gout PSH: appendectomy SH: former smoker (6 cigarettes/day 15 years), stopped in 1986, socially drinks , denies illicit drug use ALL: NKDA MEDS: see APR list FH: denies Review of Systems - Constitutional Constitutional: As Per HPI - EENT Eyes: absent: As Per HPI, Blind Spots, Blurred Vision, Change in Vision, Decreased Night Vision, Diplopia, Discharge, Dry Eye, Exophthalmos, Floaters, Irritation, Itchy Eyes, Loss of Peripheral Vision, Pain, Photophobia, Requires Corrective Lenses, Sees Flashes, Spots in Vision, Tunnel Vision, Other Visual Disturbances, Loss of Vision, Other Ears: absent: As Per HPI, Decreased Hearing, Ear Discharge, Ear Pain, Tinnitus, Abnormal Hearing, Disequilibrium, Dizziness, Other Nose/Mouth/Throat: absent: As Per HPI, Epistaxis, Nasal Congestion, Nasal Discharge, Nasal Obstruction, Nasal Trauma, Nose Pain, Post Nasal Drip, Sinus Pain, Sinus Pressure, Bleeding Gums, Change in Voice, Dental Pain, Dry Mouth, Dysphagia, Halitosis, Hoarsness, Lip Swelling, Mouth Lesions, Mouth Pain, Odynophagia, Sore Throat, Throat Swelling, Tongue Swelling, Facial Pain, Neck Pain, Neck Mass, Other - Cardiovascular Cardiovascular: absent: As Per HPI, Acrocyanosis, Chest Pain, Chest Pain at Rest , Chest Pain with Activity, Claudication, Diaphoresis, Dyspnea, Dyspnea on Exertion, Edema, Irregular Heart Rhythm, Pain Radiating to Arm/Neck/Jaw, Leg Edema, Leg Ulcers, Lightheadedness, Orthopnea, Palpitations, Paroxysmal Nocturnal Dyspnea, Pedal Edema, Radiating Pain, Rapid Heart Rate, Slow Heart Rate, Syncope, Other - Respiratory Respiratory: absent: As Per HPI, Cough, Dyspnea, Hemoptysis, Dyspnea on Exertion , Wheezing, Snoring, Stridor, Pain on Inspiration, Chest Congestion, Excessive Mucous Production, Change in Mucous Color, Pain with Coughing, Other - Gastrointestinal Gastrointestinal: absent: As Per HPI, Abdominal Pain, Belching, Bloating, Change in Bowel Habits, Change in Stool Character, Coffee Ground Emesis, Constipation, Cramping, Diarrhea, Dyspepsia, Dysphagia, Early Satiety, Excessive Flatus, Fecal Incontinence, Heartburn, Hematemesis, Hematochezia, Loose Stools, Melena, Nausea, Odynophagia, Temesmus, Vomiting, Other - Genitourinary Genitourinary: absent: As Per HPI, Change in Urinary Stream, Difficulty Urinating, Dysuria, Flank Pain, Hematuria, Pyuria, Nocturia, Urinary Incontinence, Urinary Frequency, Urinary Hesitance, Urinary Urgency, Voiding Freq/Small Amts, Freq UTI, Hx Renal/Bladder Calculi, Hx /Renal Surgery, Bladder Distension, Other - Musculoskeletal Musculoskeletal: As Per HPI - Integumentary Integumentary: As Per HPI, Skin Pain - Neurological Neurological: absent: As Per HPI, Abnormal Gait, Abnormal Hearing, Abnormal Movements, Abnormal Speech, Behavioral Changes, Burning Sensations, Confusion, Convulsions, Disequilibrium, Dizziness, Numbness, Focal Weakness, Frequent Falls , Headaches, Lack of Coordination, Loss of Vision, Memory Loss, Paresthesias, Radicular Pain, Restless Legs, Sensory Deficit, Syncope, Tingling, Tremor, Vertigo, Weakness, Other Visual Disturbances, Other - Psychiatric Psychiatric: absent: As Per HPI, Abnormal Sleep Pattern, Anhedonia, Anxiety, Auditory Hallucinations, Behavioral Changes, Change in Appetite, Change in Libido, Confusion, Depression, Difficulty Concentrating, Hallucinations, Homicidal Ideation, Hopelessness, Irritability, Memory Loss, Mood Swings, Panic Attacks, Paranoia, Suicidal Ideation, Visual Hallucinations, Tactile Hallucinations, Other Past Patient History - Past Medical History & Family History Past Medical History?: Yes - Past Social History Smoking Status: Former Smoker - CARDIAC Hx Cardiac Disorders: Yes Hx Hypertension: Yes - PULMONARY Hx Respiratory Disorders: No - NEUROLOGICAL Hx Neurological Disorder: No - HEENT Hx HEENT Problems: No - RENAL Hx Chronic Kidney Disease: No - ENDOCRINE/METABOLIC Hx Endocrine Disorders: No - HEMATOLOGICAL/ONCOLOGICAL Hx Blood Disorders: No - INTEGUMENTARY Hx Dermatological Problems: No - MUSCULOSKELETAL/RHEUMATOLOGICAL Hx Musculoskeletal Disorders: No Hx Falls: No - GASTROINTESTINAL Hx Gastrointestinal Disorders: Yes Hx Gastritis: Yes - GENITOURINARY/GYNECOLOGICAL Hx Genitourinary Disorders: No - PSYCHIATRIC Hx Psychophysiologic Disorder: No Hx Substance Use: No - SURGICAL HISTORY Hx Surgeries: Yes Hx Appendectomy: Yes - ANESTHESIA Hx Anesthesia: Yes Hx Anesthesia Reactions: No Hx Malignant Hyperthermia: No Meds Allergies/Adverse Reactions: Allergies Allergy/AdvReac Type Severity Reaction Status Date / Time No Known Allergies Allergy Verified 05/02/17 19:40 - Medications Medications: Current Medications Amlodipine Besylate (Norvasc) 2.5 mg PO DAILY [facility] Last Admin: 05/03/17 08:29 Dose: 2.5 mg Enoxaparin Sodium (Lovenox) 40 mg SC DAILY [facility] PRN Reason: Protocol Last Admin: 05/03/17 17:19 Dose: 40 mg Famotidine (Pepcid) 20 mg PO BID [facility] Last Admin: 05/03/17 17:19 Dose: 20 mg Glipizide (Glucotrol Xl) 2.5 mg PO ACBD [facility] Last Admin: 05/03/17 17:03 Dose: 2.5 mg Piperacillin Sod/Tazobactam (Sod 3.375 gm/ Sodium Chloride) 100 mls @ 100 mls/ hr IVPB Q6 [facility] PRN Reason: Protocol Indomethacin (Indocin) 50 mg PO TID [facility] Last Admin: 05/03/17 17:19 Dose: 50 mg Insulin Human Regular (Humulin R) 0 units SC ACHS [facility] PRN Reason: Protocol Last Admin: 05/03/17 17:17 Dose: 3 units Metformin HCl (Glucophage) 500 mg PO BID [facility] Last Admin: 05/03/17 17:02 Dose: 500 mg Pregabalin (Lyrica) 50 mg PO BID [facility] Last Admin: 05/03/17 17:21 Dose: 50 mg Physical Exam - Constitutional Appears: Non-toxic, Chronically Ill - Head Exam Head Exam: NORMOCEPHALIC - Eye Exam Eye Exam: PERRL - ENT Exam ENT Exam: Mucous Membranes Dry - Neck Exam Neck exam: Negative for: Lymphadenopathy - Respiratory Exam Respiratory Exam: Decreased Breath Sounds - Cardiovascular Exam Cardiovascular Exam: REGULAR RHYTHM - GI/Abdominal Exam GI & Abdominal Exam: Diminished Bowel Sounds, Soft. absent: Tenderness - Rectal Exam Rectal Exam: Deferred - Exam Exam: NORMAL INSPECTION - Extremities Exam Extremities exam: Positive for: pedal edema, tenderness, pedal pulses present. Negative for: calf tenderness, normal inspection Additional comments: RIGHT FOOT CELLULITIS - Back Exam Back exam: absent: CVA tenderness (L), CVA tenderness (R), paraspinal tenderness - Neurological Exam Neurological exam: Alert, CN II-XII Intact, Oriented x3, Reflexes Normal - Psychiatric Exam Psychiatric exam: Normal Mood - Skin Skin Exam: Dry Results - Vital Signs Recent Vital Signs: Last Vital Signs Temp 98.8 F 05/03/17 16:02 Pulse 77 05/03/17 16:02 Resp 20 05/03/17 16:02 BP 134/79 05/03/17 16:02 Pulse Ox 94 L 05/03/17 16:02 - Labs Result Diagrams: 05/03/17 07:30 05/03/17 07:30 Labs: Laboratory Results - last 24 hr 05/02/17 05/02/17 05/02/17 21:17 21:17 21:17 WBC 7.1 RBC 4.30 L Hgb 14.0 Hct 40.9 MCV 95.1 H MCH 32.7 H MCHC 34.3 RDW 13.4 Plt Count 183 MPV 9.4 Neut % (Auto) 47.9 L Lymph % (Auto) 39.6 Bibb % (Auto) 9.9 Eos % (Auto) 1.4 Baso % (Auto) 1.2 Neut # (Auto) 3.4 Lymph # (Auto) 2.8 Bibb # (Auto) 0.7 Eos # (Auto) 0.1 Baso # (Auto) 0.1 ESR pO2 38 VBG pH 7.43 VBG pCO2 41 VBG HCO3 26.4 VBG Total CO2 28.5 H VBG O2 Sat (Calc) 81.1 H VBG Base Excess 2.6 H VBG Potassium 3.8 Sodium 140 139.0 Chloride 104 104.0 Glucose 138 H Lactate 1.8 FiO2 21.0 Potassium 3.8 Carbon Dioxide 24 Anion Gap 16 BUN 15 Creatinine 0.8 Est GFR ( Amer) > 60 Est GFR (Non-Af Amer) > 60 POC Glucose (mg/dL) Random Glucose 132 H Hemoglobin A1c Uric Acid Calcium 9.2 Total Bilirubin 0.4 AST 54 ALT 108 H Alkaline Phosphatase 115 Total Protein 7.8 Albumin 4.2 Globulin 3.6 Albumin/Globulin Ratio 1.2 Vitamin B12 Folate TSH 3rd Generation Venous Blood Potassium 3.8 Urine Color Urine Clarity Urine pH Ur Specific [place] Urine Protein Urine Glucose (UA) Urine Ketones Urine Blood Urine Nitrate Urine Bilirubin Urine Urobilinogen Ur Leukocyte Esterase Urine RBC (Auto) Urine Microscopic WBC Ur Squamous Epith Cells Lyme Disease IgG Ab (IFA) Lyme Disease IgM Ab 05/02/17 05/03/17 05/03/17 22:04 00:37 00:37 WBC RBC Hgb Hct MCV MCH MCHC RDW Plt Count MPV Neut % (Auto) Lymph % (Auto) Bibb % (Auto) Eos % (Auto) Baso % (Auto) Neut # (Auto) Lymph # (Auto) Bibb # (Auto) Eos # (Auto) Baso # (Auto) ESR 29 H pO2 VBG pH VBG pCO2 VBG HCO3 VBG Total CO2 VBG O2 Sat (Calc) VBG Base Excess VBG Potassium Sodium Chloride Glucose Lactate FiO2 Potassium Carbon Dioxide Anion Gap BUN Creatinine Est GFR ( Amer) Est GFR (Non-Af Amer) POC Glucose (mg/dL) 125 H Random Glucose Hemoglobin A1c Uric Acid Calcium Total Bilirubin AST ALT Alkaline Phosphatase Total Protein Albumin Globulin Albumin/Globulin Ratio Vitamin B12 502 Folate 19.9 TSH 3rd Generation 2.82 Venous Blood Potassium Urine Color Urine Clarity Urine pH Ur Specific [place] Urine Protein Urine Glucose (UA) Urine Ketones Urine Blood Urine Nitrate Urine Bilirubin Urine Urobilinogen Ur Leukocyte Esterase Urine RBC (Auto) Urine Microscopic WBC Ur Squamous Epith Cells Lyme Disease IgG Ab (IFA) Lyme Disease IgM Ab 05/03/17 05/03/17 05/03/17 00:37 00:45 00:49 WBC RBC Hgb Hct MCV MCH MCHC RDW Plt Count MPV Neut % (Auto) Lymph % (Auto) Bibb % (Auto) Eos % (Auto) Baso % (Auto) Neut # (Auto) Lymph # (Auto) Bibb # (Auto) Eos # (Auto) Baso # (Auto) ESR pO2 VBG pH VBG pCO2 VBG HCO3 VBG Total CO2 VBG O2 Sat (Calc) VBG Base Excess VBG Potassium Sodium Chloride Glucose Lactate FiO2 Potassium Carbon Dioxide Anion Gap BUN Creatinine Est GFR ( Amer) Est GFR (Non-Af Amer) POC Glucose (mg/dL) Random Glucose Hemoglobin A1c 9.9 H Uric Acid Calcium Total Bilirubin AST ALT Alkaline Phosphatase Total Protein Albumin Globulin Albumin/Globulin Ratio Vitamin B12 Folate TSH 3rd Generation Venous Blood Potassium Urine Color Yellow Urine Clarity Clear Urine pH 5.0 Ur Specific [place] 1.016 Urine Protein Negative Urine Glucose (UA) Neg Urine Ketones Negative Urine Blood Negative Urine Nitrate Negative Urine Bilirubin Negative Urine Urobilinogen 0.2-1.0 Ur Leukocyte Esterase Neg Urine RBC (Auto) 3 Urine Microscopic WBC 1 Ur Squamous Epith Cells < 1 Lyme Disease IgG Ab (IFA) Negative Lyme Disease IgM Ab 05/03/17 05/03/17 05/03/17 00:49 05:31 07:30 WBC 7.1 RBC 4.18 L Hgb 13.7 Hct 39.8 MCV 95.1 H MCH 32.8 H MCHC 34.4 RDW 13.2 Plt Count 172 MPV 9.0 Neut % (Auto) 57.0 Lymph % (Auto) 29.6 Bibb % (Auto) 10.4 H Eos % (Auto) 1.9 Baso % (Auto) 1.1 Neut # (Auto) 4.0 Lymph # (Auto) 2.1 Bibb # (Auto) 0.7 Eos # (Auto) 0.1 Baso # (Auto) 0.1 ESR pO2 VBG pH VBG pCO2 VBG HCO3 VBG Total CO2 VBG O2 Sat (Calc) VBG Base Excess VBG Potassium Sodium Chloride Glucose Lactate FiO2 Potassium Carbon Dioxide Anion Gap BUN Creatinine Est GFR ( Amer) Est GFR (Non-Af Amer) POC Glucose (mg/dL) 140 H Random Glucose Hemoglobin A1c Uric Acid Calcium Total Bilirubin AST ALT Alkaline Phosphatase Total Protein Albumin Globulin Albumin/Globulin Ratio Vitamin B12 Folate TSH 3rd Generation Venous Blood Potassium Urine Color Urine Clarity Urine pH Ur Specific [place] Urine Protein Urine Glucose (UA) Urine Ketones Urine Blood Urine Nitrate Urine Bilirubin Urine Urobilinogen Ur Leukocyte Esterase Urine RBC (Auto) Urine Microscopic WBC Ur Squamous Epith Cells Lyme Disease IgG Ab (IFA) Lyme Disease IgM Ab Negative 05/03/17 05/03/17 05/03/17 07:30 10:19 11:01 WBC RBC Hgb Hct MCV MCH MCHC RDW Plt Count MPV Neut % (Auto) Lymph % (Auto) Bibb % (Auto) Eos % (Auto) Baso % (Auto) Neut # (Auto) Lymph # (Auto) Bibb # (Auto) Eos # (Auto) Baso # (Auto) ESR pO2 VBG pH VBG pCO2 VBG HCO3 VBG Total CO2 VBG O2 Sat (Calc) VBG Base Excess VBG Potassium Sodium 142 Chloride 104 Glucose Lactate FiO2 Potassium 4.0 Carbon Dioxide 25 Anion Gap 17 BUN 18 Creatinine 1.0 Est GFR ( Amer) > 60 Est GFR (Non-Af Amer) > 60 POC Glucose (mg/dL) 249 H Random Glucose 153 H Hemoglobin A1c Uric Acid 5.5 Calcium 9.0 Total Bilirubin AST ALT Alkaline Phosphatase Total Protein Albumin Globulin Albumin/Globulin Ratio Vitamin B12 Folate TSH 3rd Generation Venous Blood Potassium Urine Color Urine Clarity Urine pH Ur Specific [place] Urine Protein Urine Glucose (UA) Urine Ketones Urine Blood Urine Nitrate Urine Bilirubin Urine Urobilinogen Ur Leukocyte Esterase Urine RBC (Auto) Urine Microscopic WBC Ur Squamous Epith Cells Lyme Disease IgG Ab (IFA) Lyme Disease IgM Ab 05/03/17 15:23 WBC RBC Hgb Hct MCV MCH MCHC RDW Plt Count MPV Neut % (Auto) Lymph % (Auto) Bibb % (Auto) Eos % (Auto) Baso % (Auto) Neut # (Auto) Lymph # (Auto) Bibb # (Auto) Eos # (Auto) Baso # (Auto) ESR pO2 VBG pH VBG pCO2 VBG HCO3 VBG Total CO2 VBG O2 Sat (Calc) VBG Base Excess VBG Potassium Sodium Chloride Glucose Lactate FiO2 Potassium Carbon Dioxide Anion Gap BUN Creatinine Est GFR ( Amer) Est GFR (Non-Af Amer) POC Glucose (mg/dL) 257 H Random Glucose Hemoglobin A1c Uric Acid Calcium Total Bilirubin AST ALT Alkaline Phosphatase Total Protein Albumin Globulin Albumin/Globulin Ratio Vitamin B12 Folate TSH 3rd Generation Venous Blood Potassium Urine Color Urine Clarity Urine pH Ur Specific [place] Urine Protein Urine Glucose (UA) Urine Ketones Urine Blood Urine Nitrate Urine Bilirubin Urine Urobilinogen Ur Leukocyte Esterase Urine RBC (Auto) Urine Microscopic WBC Ur Squamous Epith Cells Lyme Disease IgG Ab (IFA) Lyme Disease IgM Ab Assessment & Plan (1) New onset type 2 diabetes mellitus Status: Acute (2) Gout Status: Chronic (3) Cellulitis of foot Status: Suspected - Assessment and Plan (Free Text) Assessment: CONT IV ANTIBIOTICS AND WOUND CARE AWAIT MRI
--- NOTE | 2017-05-03 20:49 | CON ---
ENDOCRINOLOGY CONSULTATION DATE: LOCATION: In room 664 HISTORY OF PRESENT ILLNESS: This is a 62-year-old male with recent onset of type 2 diabetes presenting here with right foot cellulitis and currently undergoing IV antibiotic management and local debridement and is being referred also now for diabetic evaluation and management. PAST MEDICAL HISTORY: Essentially unremarkable. He had a prior history of lumbar disk disease and cervical disk disease with severe lumbago and cervicalgia as noted. There is also history of osteoarthritis and also gouty arthritis medications as noted. FAMILY HISTORY: Positive for hypertension and diabetes. SOCIAL HISTORY: The patient admits to being a former smoker, but has quit smoking many years ago. No other known substance use. He has a supportive family otherwise. REVIEW OF SYSTEMS: Admits to generalized body weakness with episodic hypersomnolence and lethargy and also episodic dizziness and lightheadedness as noted. No chest pains or palpitations or PND. His oral intake is variable with nausea, dyspepsia, and vague upper abdominal pains. Also admits to occasional nocturia as noted. PHYSICAL EXAMINATION: GENERAL: This is an average built male in no apparent distress. VITAL SIGNS: Blood pressure of 140/80, pulse of 70 beats per minute and regular, temperature 98, respirations 20, height is 5 feet 9 inches, and weight is 187 pounds. HEENT: Head is normocephalic. Eyes anicteric with pink conjunctivae. Funduscopy not possible at this time. Ears, nose, and throat otherwise normal. NECK: Supple. Thyroid gland is normal in size. No carotid bruits or cervical adenopathy. CARDIOPULMONARY: Some adynamic precordium. S1 and S2 is rapid and regular. LUNGS: Clear to auscultation. ABDOMEN: Flat and soft with positive bowel sounds. EXTREMITIES: Shows erythema and edema in the dorsal aspect of the right foot, especially on the lateral aspect as noted. LABORATORY DATA: Chemistries; BUN is 18, sodium 142, potassium 4.0, chloride 104, CO2 of 25, glucose 153, and creatinine 1.0. ASSESSMENT AND PLAN: This is a 62-year-old male presenting here with right foot cellulitis and also recent onset of overt type 2 diabetes with a hemoglobin A1c of 9.9% as noted. Plan of management as discussed with the patient's staff. We will modify his current oral hypoglycemic therapy with metformin to be increased to 500 mg b.i.d. after meals and glipizide to be increased to 2.5 mg b.i.d. before meals to start today. We will modify the coverage scale to obviate hypoglycemia and detailed orders have been given. We will also obtain serial chemistries and supplement accordingly as needed. We will initiate diabetic dictation and dietary instructions also at the time of this admission. We will follow. Amina Stewart MD
[2017-05-03] MEDS: Piperacillin/Tazobact 3.375 GM in Sodium Chloride 0.9% 100 ML IVPB SCH (21:21)
[2017-05-04] MEDS: Piperacillin/Tazobact 3.375 GM in Sodium Chloride 0.9% 100 ML IVPB SCH ×4 (04:40→22:30)
[2017-05-04 06:35] LABS: ALB/GLOB RATIO 1.1 (1.0-2.1); ALBUMIN 3.8 g/dL (3.5-5.0); ALT/SGPT 83 U/L (21-72); AST/SGOT 46 U/L (17-59); BLOOD UREA NITROGEN 16 mg/dl (9-20); CALCIUM 8.9 mg/dL (8.4-10.2); GFR AFRICAN-AMERICAN > 60; GFR NON-AFRICAN AMERICAN > 60; HDL CHOLESTEROL 30 MG/DL (30-70)
[2017-05-04 06:43] LABS: LDL CHOLESTEROL 97 mg/dL (0-129)
--- NOTE | 2017-05-04 06:44 | CP.PCM.PN ---
Subjective - Date & Time of Evaluation Date of Evaluation: 05/05/17 Time of Evaluation: 07:30 - Subjective Subjective: Podiatry Progress Note- Dr. Johnson 62 y.o male seen and evaluated at bedside with clinical signs most consistent with right foot acute gouty attack. Patient is seen resting at bedside, in NAD, and AA0x3. Patient reports that today he is doing well. Reports the swelling, redness and pain has gone down. Denies overnight acute events. He reports today he has new onset of pain to the left foot at the big toe joint. Worse with ambulation. Reports the pain to the left big toe is mild. Denies nausea, fever, shortness of breath, chest pain, or chills. Objective - Vital Signs/Intake and Output Vital Signs (last 24 hours): Temp Pulse Resp BP Pulse Ox 98.2 F 62 19 121/76 96 05/04/17 00:00 05/04/17 00:00 05/04/17 00:00 05/04/17 00:00 05/04/17 00:00 - Medications Medications: Current Medications Amlodipine Besylate (Norvasc) 2.5 mg PO DAILY [facility] Last Admin: 05/03/17 08:29 Dose: 2.5 mg Enoxaparin Sodium (Lovenox) 40 mg SC DAILY [facility] PRN Reason: Protocol Last Admin: 05/03/17 17:19 Dose: 40 mg Famotidine (Pepcid) 20 mg PO BID [facility] Last Admin: 05/03/17 17:19 Dose: 20 mg Glipizide (Glucotrol Xl) 10 mg PO ACBD [facility] Piperacillin Sod/Tazobactam (Sod 3.375 gm/ Sodium Chloride) 100 mls @ 100 mls/ hr IVPB Q6 [facility] PRN Reason: Protocol Last Admin: 05/04/17 04:40 Dose: 100 mls/hr Indomethacin (Indocin) 50 mg PO TID [facility] Last Admin: 05/03/17 17:19 Dose: 50 mg Insulin Human Regular (Humulin R) 0 units SC ACHS [facility] PRN Reason: Protocol Last Admin: 05/03/17 22:27 Dose: Not Given Metformin HCl (Glucophage) 850 mg PO BID [facility] Pregabalin (Lyrica) 50 mg PO BID [facility] Last Admin: 05/03/17 17:21 Dose: 50 mg - Labs Labs: 05/03/17 07:30 05/04/17 05:40 - Constitutional Appears: Well, Non-toxic, No Acute Distress - Extremities Exam Extremities Exam: absent: Calf Tenderness Additional comments: Vasc: DP and PT 2/4 bilaterally, CFT < 3 seconds x10 digits, R LE is warm to warm, L LE is warm to cool from proximal knees to distal toes, increase warmth to the right foot Ortho: pain with palpation to the skin lesion, no pain tata skin surrounding lesion, no pain appreciated with ankle ROM, no pain with 1st MPJ ROM R, no pain with peroneals, no pain with palpation along route of the long and short extensors, no pain with passive stretching of the extensors, MM is 5/5 in all four compartments Slight pain with L 1st MPJ, no swelling, no erythema, no open lesions noted to L 1st MPJ, no tophi, no crepitus noted with ROM Neuro: protective and gross sensation intact bilaterally Derm: erythematous lesion noted to the right foot dorsal laterally measuring approximately 3 x 4 cm. Erythema has significantly decrease. No streaking appreciated, no open lesions, no abscess, no fluctuance, no drainage, no purulence - Neurological Exam Neurological Exam: Alert, Awake, Oriented x3 - Psychiatric Exam Psychiatric exam: Normal Affect, Normal Mood Assessment and Plan - Assessment and Plan (Free Text) Assessment: 62 y.o male with PMH of DM and gout with acute gouty attack, R dorsal later foot pain, L 1st MPJ pain Plan: Patient examined and evaluated Discussed plan in detail with attending Dr. Johnson Charts, labs, vitals reviewed X-rays of left and right foot WNL MRI-soft tissue swelling and edema on dorsal lateral subcutaneous soft tissue may be cellulitis f/u repeat uric acid c/w Indomethacin c/w abx per ID Will follow patient while in house
[2017-05-04] MEDS: Enoxaparin 40 mg Syringe SC SCH (08:41)
[2017-05-04] MEDS: GlipiZIDE 10 mg SR Tab PO SCH ×2 (08:42→16:25)
[2017-05-04] MEDS: Insulin Regular 100 units/ml SC SCH ×4 (08:43→22:07)
--- NOTE | 2017-05-04 09:09 | RAD ---
PROCEDURE: Right Foot Radiographs. HISTORY: r/o bony pathology COMPARISON: None. FINDINGS: BONES: No acute fracture. JOINTS: Unremarkable. SOFT TISSUES: Normal. OTHER FINDINGS: Inferior plantar calcaneal spur. Small Achilles enthesophyte. . IMPRESSION: No demonstrated fracture or dislocation.
--- NOTE | 2017-05-04 09:44 | CP.PCM.PN ---
Subjective - Date & Time of Evaluation Date of Evaluation: 05/04/17 Time of Evaluation: 12:40 - Subjective Subjective: Patient still c/o pain in the rt foot. Now c/o pain in the lt foot, will check xray. 62 y/o male presented with cellulites not responding to out patient oral medications. He was started on oral meds for DM2 few days before admission his initial HbA1c few days before was higher than 10 and fructusamine more than 500. He slowly responds to present rx. Continue iv antibx and analgesics. Blood c/s pending. BG better controlled with the judgment of meds. Continue PT for ambulation. Objective - Vital Signs/Intake and Output Vital Signs (last 24 hours): Temp Pulse Resp BP Pulse Ox 98.2 F 60 20 120/77 95 05/04/17 07:54 05/04/17 08:43 05/04/17 07:54 05/04/17 08:43 05/04/17 07:54 - Medications Medications: Current Medications Amlodipine Besylate (Norvasc) 2.5 mg PO DAILY [facility] Last Admin: 05/04/17 08:43 Dose: 2.5 mg Enoxaparin Sodium (Lovenox) 40 mg SC DAILY [facility] PRN Reason: Protocol Last Admin: 05/04/17 08:41 Dose: 40 mg Famotidine (Pepcid) 20 mg PO BID [facility] Last Admin: 05/04/17 08:44 Dose: 20 mg Glipizide (Glucotrol Xl) 10 mg PO ACBD [facility] Last Admin: 05/04/17 08:42 Dose: 10 mg Piperacillin Sod/Tazobactam (Sod 3.375 gm/ Sodium Chloride) 100 mls @ 100 mls/ hr IVPB Q6 [facility] PRN Reason: Protocol Last Admin: 05/04/17 09:08 Dose: 100 mls/hr Indomethacin (Indocin) 50 mg PO TID [facility] Last Admin: 05/04/17 08:43 Dose: 50 mg Insulin Human Regular (Humulin R) 0 units SC ACHS [facility] PRN Reason: Protocol Last Admin: 05/04/17 08:43 Dose: Not Given Metformin HCl (Glucophage) 850 mg PO BID [facility] Last Admin: 05/04/17 08:42 Dose: 850 mg Pregabalin (Lyrica) 50 mg PO BID [facility] Last Admin: 05/04/17 08:43 Dose: 50 mg - Labs Labs: 05/03/17 07:30 05/04/17 05:40 - Head Exam Head Exam: ATRAUMATIC, NORMAL INSPECTION, NORMOCEPHALIC - Eye Exam Eye Exam: Normal appearance - ENT Exam ENT Exam: Mucous Membranes Moist - Neck Exam Neck Exam: Full ROM - Respiratory Exam Respiratory Exam: Clear to Ausculation Bilateral - Cardiovascular Exam Cardiovascular Exam: REGULAR RHYTHM, +S1, +S2 - GI/Abdominal Exam GI & Abdominal Exam: Soft, Normal Bowel Sounds - Extremities Exam Additional comments: Rt foot + erythema with tenderness, clinically improving Lt foot tenderness no erythema no edema - Neurological Exam Neurological Exam: Abnormal Gait, Alert, Awake, Oriented x3 Assessment and Plan (1) Gout attack Status: Suspected (2) Gout Status: Chronic (3) Cellulitis of foot Status: Suspected (4) New onset type 2 diabetes mellitus Status: Acute (5) Back pain Status: Chronic (6) Sciatica Status: Chronic - Assessment and Plan (Free Text) Plan: The uric acid is wnl, this not exclude the acute exacerbation of gout (25% of acute gout present with nl uric acid levels). Patient with cellulites high risk comorbidity, new onset of DM uncontrolled and HbA1c more than 10 as OP few days ago. Will continue present rx.
--- NOTE | 2017-05-04 10:30 | RAD ---
PROCEDURE: Left Foot Radiographs. HISTORY: pain COMPARISON: Left foot radiographs dated 07/30/2008. FINDINGS: BONES: No acute fracture. JOINTS: Unremarkable. SOFT TISSUES: Normal. OTHER FINDINGS: Small inferior plantar calcaneal spur. IMPRESSION: No demonstrated fracture or dislocation.
--- NOTE | 2017-05-04 11:36 | PN ---
DATE: ENDO FOLLOWUP NOTE LOCATION: Room 664. SUBJECTIVE: This is a 62-year-old male with recent onset of type 2 diabetes and recent hyperglycemic accelerations and is now being followed closely for metabolic management. He has ongoing IV antibiotics and local debridement of the right foot cellulitis as noted thereof. His glycemic levels are fluctuating but improved and the glucose values are ranging from 134-219 and 257 mg/dL. His latest chemistry showed BUN of 16, sodium of 144, potassium of 4.0, chloride of 105, CO2 of 28, glucose of 135, and creatinine of 1.1. So at this time, we will continue the same basal and bolus insulin regimen to allow for dose equilibration as ordered. We will also continue the dual oral therapy as modified with a higher dose of metformin at 850 mg b.i.d. to start today. We will also increase the glipizide to 10 mg b.i.d. before meals as ordered. We will also continue the low-dose correction scale using regular insulin as given. We will titrate incrementally as indicated to optimize metabolic control. We will obtain serial chemistries and supplement accordingly as needed. We will follow. Amina Stewart MD
--- NOTE | 2017-05-04 14:21 | CP.PCM.PN ---
Subjective - Date & Time of Evaluation Date of Evaluation: 05/04/17 Time of Evaluation: 09:00 - Subjective Subjective: less pain and swelling redness almost gone no new cultures Objective - Vital Signs/Intake and Output Vital Signs (last 24 hours): Temp Pulse Resp BP Pulse Ox 98.2 F 60 20 120/77 95 05/04/17 07:54 05/04/17 08:43 05/04/17 07:54 05/04/17 08:43 05/04/17 07:54 - Medications Medications: Current Medications Amlodipine Besylate (Norvasc) 2.5 mg PO DAILY [facility] Last Admin: 05/04/17 08:43 Dose: 2.5 mg Enoxaparin Sodium (Lovenox) 40 mg SC DAILY [facility] PRN Reason: Protocol Last Admin: 05/04/17 08:41 Dose: 40 mg Famotidine (Pepcid) 20 mg PO BID [facility] Last Admin: 05/04/17 08:44 Dose: 20 mg Glipizide (Glucotrol Xl) 10 mg PO ACBD [facility] Last Admin: 05/04/17 08:42 Dose: 10 mg Piperacillin Sod/Tazobactam (Sod 3.375 gm/ Sodium Chloride) 100 mls @ 100 mls/ hr IVPB Q6 [facility] PRN Reason: Protocol Last Admin: 05/04/17 09:08 Dose: 100 mls/hr Indomethacin (Indocin) 50 mg PO TID [facility] Last Admin: 05/04/17 12:49 Dose: 50 mg Insulin Human Regular (Humulin R) 0 units SC ACHS [facility] PRN Reason: Protocol Last Admin: 05/04/17 12:30 Dose: 2 units Metformin HCl (Glucophage) 850 mg PO BID [facility] Last Admin: 05/04/17 08:42 Dose: 850 mg Izcfw-0-Cism Ethyl Esters (Lovaza) 2 gm PO BID [facility] Pregabalin (Lyrica) 50 mg PO BID [facility] Last Admin: 05/04/17 08:43 Dose: 50 mg - Labs Labs: 05/03/17 07:30 05/04/17 05:40 - Constitutional Appears: Non-toxic, Chronically Ill - Head Exam Head Exam: NORMOCEPHALIC - Eye Exam Eye Exam: PERRL. absent: Scleral icterus - ENT Exam ENT Exam: Mucous Membranes Dry - Neck Exam Neck Exam: absent: Lymphadenopathy - Respiratory Exam Respiratory Exam: Decreased Breath Sounds - Cardiovascular Exam Cardiovascular Exam: REGULAR RHYTHM - GI/Abdominal Exam GI & Abdominal Exam: Distended, Soft - Rectal Exam Rectal Exam: Deferred - Exam Exam: NORMAL INSPECTION - Extremities Exam Extremities Exam: absent: Calf Tenderness, Pedal Edema, Tenderness - Back Exam Back Exam: absent: CVA tenderness (L), CVA tenderness (R), paraspinal tenderness - Neurological Exam Neurological Exam: Alert, Awake, Normal Gait, Oriented x3 Neuro motor strength exam: Left Upper Extremity: 5, Right Upper Extremity: 5, Left Lower Extremity: 5, Right Lower Extremity: 5 - Psychiatric Exam Psychiatric exam: Normal Mood - Skin Skin Exam: Dry Assessment and Plan (1) New onset type 2 diabetes mellitus Status: Acute (2) Gout Status: Chronic (3) Cellulitis of foot Status: Suspected - Assessment and Plan (Free Text) Assessment: d/c on PO Keflex for 7 days in am if improvement continues
[2017-05-04] MEDS: Omega-3-Acid Ethyl Esters 1 GM Cap PO SCH (16:33)
[2017-05-05] MEDS: Piperacillin/Tazobact 3.375 GM in Sodium Chloride 0.9% 100 ML IVPB SCH ×2 (04:26→09:08)
[2017-05-05 07:54] VITALS: RESP 18
[2017-05-05] MEDS: Insulin Regular 100 units/ml SC SCH ×2 (08:00→12:00)
[2017-05-05 08:01] LABS: BASO # 0.1 K/uL (0.0-0.2); BASO % 0.9 % (0.0-2.0); EOS # 0.2 K/uL (0.0-0.7); EOS % 2.6 % (0.0-4.0); HEMOGLOBIN 12.9 g/dL (12.0-18.0); MEAN CORPUSCULAR HEMOGLOBIN 33.2 pg (27.0-31.0); MEAN CORPUSCULAR HGB CONC 34.5 g/dL (33.0-37.0); MEAN PLATELET VOLUME 9.6 fl (7.2-11.7); MONO # 0.8 K/uL (0.0-0.8); NEUT # 2.5 K/uL (1.8-7.0); NEUT % 38.5 % (50.0-75.0); NRBC % 0.1 % (0.0-0.0); RBC 3.9 Mil/uL (4.40-5.90); RED CELL DISTRIBUTION WIDTH 13.2 % (11.5-14.5); WHITE BLOOD COUNT 6.6 K/uL (4.8-10.8)
[2017-05-05 08:27] LABS: BLOOD UREA NITROGEN 17 mg/dl (9-20); CALCIUM 8.9 mg/dL (8.4-10.2); GFR AFRICAN-AMERICAN > 60; GFR NON-AFRICAN AMERICAN > 60; URIC ACID 3.4 mg/Dl (3.5-8.5)
[2017-05-05] MEDS: GlipiZIDE 10 mg SR Tab PO SCH (08:57)
[2017-05-05] MEDS: Enoxaparin 40 mg Syringe SC SCH (09:06)
[2017-05-05] MEDS: Omega-3-Acid Ethyl Esters 1 GM Cap PO SCH (09:06)
--- NOTE | 2017-05-05 10:34 | CP.PCM.DIS ---
Provider - Provider Date of Admission: 05/02/17 22:42 Attending physician: Jama Blair MD Time Spent in preparation of Discharge (in minutes): 30 Diagnosis - Discharge Diagnosis (1) Gout attack Status: Suspected (2) Gout Status: Chronic (3) Cellulitis of foot Status: Suspected (4) New onset type 2 diabetes mellitus Status: Acute (5) Back pain Status: Chronic (6) Sciatica Status: Chronic Hospital Course - Lab Results Lab Results: Micro Results 05/02/17 22:47 Blood Blood Culture - Preliminary NO GROWTH AFTER 48 HOURS 05/02/17 22:17 Blood Blood Culture - Preliminary NO GROWTH AFTER 48 HOURS Most Recent Lab Values WBC 6.6 K/uL (4.8-10.8) 05/05/17 05:30 RBC 3.90 Mil/uL (4.40-5.90) L 05/05/17 05:30 Hgb 12.9 g/dL (12.0-18.0) 05/05/17 05:30 Hct 37.5 % (35.0-51.0) 05/05/17 05:30 MCV 96.0 fl (80.0-94.0) H 05/05/17 05:30 MCH 33.2 pg (27.0-31.0) H 05/05/17 05:30 MCHC 34.5 g/dL (33.0-37.0) 05/05/17 05:30 RDW 13.2 % (11.5-14.5) 05/05/17 05:30 Plt Count 164 K/uL (130-400) 05/05/17 05:30 MPV 9.6 fl (7.2-11.7) 05/05/17 05:30 Neut % (Auto) 38.5 % (50.0-75.0) L 05/05/17 05:30 Lymph % (Auto) 46.0 % (20.0-40.0) H 05/05/17 05:30 Lipscomb % (Auto) 12.0 % (0.0-10.0) H 05/05/17 05:30 Eos % (Auto) 2.6 % (0.0-4.0) 05/05/17 05:30 Baso % (Auto) 0.9 % (0.0-2.0) 05/05/17 05:30 Neut # (Auto) 2.5 K/uL (1.8-7.0) 05/05/17 05:30 Lymph # (Auto) 3.0 K/uL (1.0-4.3) 05/05/17 05:30 Lipscomb # (Auto) 0.8 K/uL (0.0-0.8) 05/05/17 05:30 Eos # (Auto) 0.2 K/uL (0.0-0.7) 05/05/17 05:30 Baso # (Auto) 0.1 K/uL (0.0-0.2) 05/05/17 05:30 ESR 29 mm/hr (0-20) H 05/03/17 00:37 pO2 38 mm/Hg (30-55) 05/02/17 21:17 VBG pH 7.43 (7.32-7.43) 05/02/17 21:17 VBG pCO2 41 mmHg (40-60) 05/02/17 21:17 VBG HCO3 26.4 mmol/L 05/02/17 21:17 VBG Total CO2 28.5 mmol/L (22-28) H 05/02/17 21:17 VBG O2 Sat (Calc) 81.1 % (40-65) H 05/02/17 21:17 VBG Base Excess 2.6 mmol/L (0.0-2.0) H 05/02/17 21:17 VBG Potassium 3.8 mmol/L (3.6-5.2) 05/02/17 21:17 Sodium 139.0 mmol/L (132-148) 05/02/17 21:17 Chloride 104.0 mmol/L (98-107) 05/02/17 21:17 Glucose 138 mg/dL (75-110) H 05/02/17 21:17 Lactate 1.8 mmol/L (0.7-2.1) 05/02/17 21:17 FiO2 21.0 % 05/02/17 21:17 Sodium 142 mmol/l (132-148) 05/05/17 05:30 Potassium 4.0 MMOL/L (3.6-5.0) 05/05/17 05:30 Chloride 104 mmol/L (98-107) 05/05/17 05:30 Carbon Dioxide 27 mmol/L (22-30) 05/05/17 05:30 Anion Gap 15 (10-20) 05/05/17 05:30 BUN 17 mg/dl (9-20) 05/05/17 05:30 Creatinine 1.1 mg/dl (0.8-1.5) 05/05/17 05:30 Est GFR ( Amer) > 60 05/05/17 05:30 Est GFR (Non-Af Amer) > 60 05/05/17 05:30 POC Glucose (mg/dL) 172 mg/dL (65-110) H 05/05/17 05:26 Random Glucose 172 mg/dL (75-110) H 05/05/17 05:30 Hemoglobin A1c 9.9 % (4.2-6.5) H 05/03/17 00:37 Uric Acid 3.4 mg/Dl (3.5-8.5) L 05/05/17 05:30 Calcium 8.9 mg/dL (8.4-10.2) 05/05/17 05:30 Total Bilirubin 0.7 mg/dl (0.2-1.3) 05/04/17 05:40 AST 46 U/L (17-59) 05/04/17 05:40 ALT 83 U/L (21-72) H D 05/04/17 05:40 Alkaline Phosphatase 101 U/L (38-126) 05/04/17 05:40 Total Protein 7.1 G/DL (6.3-8.2) 05/04/17 05:40 Albumin 3.8 g/dL (3.5-5.0) 05/04/17 05:40 Globulin 3.3 gm/dL (2.2-3.9) 05/04/17 05:40 Albumin/Globulin Ratio 1.1 (1.0-2.1) 05/04/17 05:40 Triglycerides 265 mg/DL (0-149) H 05/04/17 05:40 Cholesterol 172 mg/dL (0-199) 05/04/17 05:40 LDL Cholesterol Direct 97 mg/dL (0-129) 05/04/17 05:40 HDL Cholesterol 30 MG/DL (30-70) 05/04/17 05:40 Vitamin B12 502 pg/mL (239-931) 05/03/17 00:37 Folate 19.9 ng/mL 05/03/17 00:37 Procalcitonin 0.07 NG/ML (0.19-0.49) L 05/04/17 05:40 TSH 3rd Generation 2.82 mIU/ML (0.46-4.68) 05/03/17 00:37 Venous Blood Potassium 3.8 mmol/L (3.6-5.2) 05/02/17 21:17 Urine Color Yellow (YELLOW) 05/03/17 00:45 Urine Clarity Clear (Clear) 05/03/17 00:45 Urine pH 5.0 (5.0-8.0) 05/03/17 00:45 Ur Specific [place] 1.016 (1.003-1.030) 05/03/17 00:45 Urine Protein Negative mg/dL (NEGATIVE) 05/03/17 00:45 Urine Glucose (UA) Neg mg/dL (Normal) 05/03/17 00:45 Urine Ketones Negative mg/dL (NEGATIVE) 05/03/17 00:45 Urine Blood Negative (NEGATIVE) 05/03/17 00:45 Urine Nitrate Negative (NEGATIVE) 05/03/17 00:45 Urine Bilirubin Negative (NEGATIVE) 05/03/17 00:45 Urine Urobilinogen 0.2-1.0 mg/dL (0.2-1.0) 05/03/17 00:45 Ur Leukocyte Esterase Neg Ravindra/uL (Negative) 05/03/17 00:45 Urine RBC (Auto) 3 /hpf (0-3) 05/03/17 00:45 Urine Microscopic WBC 1 /hpf (0-5) 05/03/17 00:45 Ur Squamous Epith Cells < 1 /hpf (0-5) 05/03/17 00:45 ULISES Screen Negative (Negative) 05/03/17 00:49 Lyme Disease IgG Ab (IFA) Negative (NEGATIVE) 05/03/17 00:49 Lyme Disease IgM Ab Negative (NEGATIVE) 05/03/17 00:49 - Hospital Course Hospital Course: Patient is a pleasant 62 y/o gentleman with hx of new onset on DM, lumbago, cervicalgia, gout, presented in ER with rt foot pain. He was stared on anti inflammatory and antibx medication with no improvement of his condition. The day of admission he c/o severe pain in the rt foot. He was started on antibx, the meds for new onset of DM adjusted. He improved well. A test for heavy metal was performed will follow as OP. Discharge Exam - Head Exam Head Exam: NORMOCEPHALIC - Eye Exam Eye Exam: Normal appearance - ENT Exam ENT Exam: Normal Exam - Neck Exam Neck exam: Full Rom - Respiratory Exam Respiratory Exam: Clear to PA & Lateral - Cardiovascular Exam Cardiovascular Exam: REGULAR RHYTHM, +S1, +S2 - GI/Abdominal Exam GI & Abdominal Exam: Normal Bowel Sounds - Extremities Exam Extremities exam: normal inspection - Neurological Exam Neurological exam: Alert, CN II-XII Intact, Oriented x3 - Psychiatric Exam Psychiatric exam: Normal Affect - Skin Skin Exam: Normal Color Discharge Plan - Discharge Medications Prescriptions: Lactobacillus Acidophilus [Bacid Acidophilus] 1 cap PO BID 20 Days #40 cap Naproxen [EC-Naprosyn] 500 mg PO DAILY #30 tablet. Cephalexin [cephalexin] 500 mg PO BID 10 Days #20 cap Famotidine [Pepcid] 20 mg PO BID 30 Days #60 tab - Follow Up Plan Condition: FAIR Disposition: HOME/ ROUTINE Instructions: Type 2 Diabetes, Gout (DC), Diabetes Type 2 (DC), Diabetes and Infections Referrals: Bora Johnson MD [Staff Provider] - Amina Stewart MD [Medical Doctor] - Dov Fairbanks MD [Staff Provider] - Yimi Cervantes MD [Staff Provider] - Jama Blair MD [Family Provider] -
--- NOTE | 2017-05-05 11:24 | CP.PCM.PN ---
Subjective - Date & Time of Evaluation Date of Evaluation: 05/05/17 Time of Evaluation: 11:17 - Subjective Subjective: Podiatry progress note for Dr. Johnson 62M with PMHx IDDM2 and gout seen at bedside for what is most likely gouty flare -up of the right foot. Patient is AAO x 3 and NAD at time of visit. States that he has no pain at this time and has noticed a significant decrease in redness to the dorsal aspect of his right foot. Denies any acute overnight events or any further pedal complaints at this time. Denies any recent N/V/F/C/CP/SOB/D/ posterior calf pain when squeezed. Patient is aware that he will be discharged home today and will have to follow up as an outpatient next week Objective - Vital Signs/Intake and Output Vital Signs (last 24 hours): Temp Pulse Resp BP Pulse Ox 97.8 F 68 18 115/73 95 05/05/17 07:53 05/05/17 09:07 05/05/17 07:53 05/05/17 09:07 05/05/17 07:53 - Medications Medications: Current Medications Amlodipine Besylate (Norvasc) 2.5 mg PO DAILY [facility] Last Admin: 05/05/17 09:07 Dose: 2.5 mg Enoxaparin Sodium (Lovenox) 40 mg SC DAILY [facility] PRN Reason: Protocol Last Admin: 05/05/17 09:06 Dose: 40 mg Famotidine (Pepcid) 20 mg PO BID [facility] Last Admin: 05/05/17 09:08 Dose: 20 mg Glipizide (Glucotrol Xl) 10 mg PO ACBD [facility] Last Admin: 05/05/17 08:57 Dose: 10 mg Piperacillin Sod/Tazobactam (Sod 3.375 gm/ Sodium Chloride) 100 mls @ 100 mls/ hr IVPB Q6 [facility] PRN Reason: Protocol Last Admin: 05/05/17 09:08 Dose: 100 mls/hr Indomethacin (Indocin) 50 mg PO TID [facility] Last Admin: 05/05/17 09:05 Dose: 50 mg Insulin Human Regular (Humulin R) 0 units SC ACHS [facility] PRN Reason: Protocol Last Admin: 05/04/17 22:07 Dose: Not Given Metformin HCl (Glucophage) 850 mg PO BID [facility] Last Admin: 05/05/17 09:05 Dose: 850 mg Rlsox-2-Feoo Ethyl Esters (Lovaza) 2 gm PO BID [facility] Last Admin: 05/05/17 09:06 Dose: 2 gm Pregabalin (Lyrica) 50 mg PO BID [facility] Last Admin: 05/05/17 09:12 Dose: 50 mg - Labs Labs: 05/05/17 05:30 05/05/17 05:30 - Constitutional Appears: Well, Non-toxic, No Acute Distress - Extremities Exam Additional comments: RLE focused exam: Vasc: DP and PT 2/4 bilaterally, CFT < 3 seconds x10 digits, RLE is warm to warm WNL. No edema noted at this time Ortho: No POP to dorsum of right foot. No gross abnormalities noted. ROM at all major joints WNL with no pain or crepitus Neuro: Epicritic and protectice sensation grossly intact b/l Derm: No erythematous or dermatological changes suggestive of ongoing gouty flareup noted at this time. No open lesions, wounds, maceration, xerosis, abnormal pigmentation or abnormal growths noted b/l - Neurological Exam Neurological Exam: Alert, Awake, Oriented x3 - Psychiatric Exam Psychiatric exam: Normal Affect, Normal Mood Assessment and Plan - Assessment and Plan (Free Text) Assessment: 62M with PMHx IDDM2 and gout seen at bedside for what is most likely gouty flare -up of the right foot Plan: Patient seen and evaluated at bedside Plan discussed with attending Dr. Johnson Charts, labs and vitals reviewed Absent leukocytosis, vitals stable F/u 24 hour UA urine analysis No dressing applied to right foot Patient to be DC home today per Dr. Blair Patient will be given Rx by Dr. Blair for Naproxen and Cephalexin to take as outpatient Patient instructed to follow up with Dr. Johnson following discharge
--- NOTE | 2017-05-05 12:01 | CP.PCM.PN ---
Subjective - Date & Time of Evaluation Date of Evaluation: 05/05/17 Time of Evaluation: 06:00 - Subjective Subjective: seen on rounds right foot less red and swollen Objective - Vital Signs/Intake and Output Vital Signs (last 24 hours): Temp Pulse Resp BP Pulse Ox 97.8 F 68 18 115/73 95 05/05/17 07:53 05/05/17 09:07 05/05/17 07:53 05/05/17 09:07 05/05/17 07:53 - Medications Medications: Current Medications Amlodipine Besylate (Norvasc) 2.5 mg PO DAILY [facility] Last Admin: 05/05/17 09:07 Dose: 2.5 mg Enoxaparin Sodium (Lovenox) 40 mg SC DAILY [facility] PRN Reason: Protocol Last Admin: 05/05/17 09:06 Dose: 40 mg Famotidine (Pepcid) 20 mg PO BID [facility] Last Admin: 05/05/17 09:08 Dose: 20 mg Glipizide (Glucotrol Xl) 10 mg PO ACBD [facility] Last Admin: 05/05/17 08:57 Dose: 10 mg Piperacillin Sod/Tazobactam (Sod 3.375 gm/ Sodium Chloride) 100 mls @ 100 mls/ hr IVPB Q6 [facility] PRN Reason: Protocol Last Admin: 05/05/17 09:08 Dose: 100 mls/hr Indomethacin (Indocin) 50 mg PO TID [facility] Last Admin: 05/05/17 09:05 Dose: 50 mg Insulin Human Regular (Humulin R) 0 units SC ACHS [facility] PRN Reason: Protocol Last Admin: 05/04/17 22:07 Dose: Not Given Metformin HCl (Glucophage) 850 mg PO BID [facility] Last Admin: 05/05/17 09:05 Dose: 850 mg [id number] Ethyl Esters (Lovaza) 2 gm PO BID [facility] Last Admin: 05/05/17 09:06 Dose: 2 gm Pregabalin (Lyrica) 50 mg PO BID [facility] Last Admin: 05/05/17 09:12 Dose: 50 mg - Labs Labs: 05/05/17 05:30 05/05/17 05:30 - Constitutional Appears: Non-toxic, Chronically Ill - Head Exam Head Exam: NORMOCEPHALIC - Eye Exam Eye Exam: PERRL - ENT Exam ENT Exam: Mucous Membranes Dry, Normal External Ear Exam - Neck Exam Neck Exam: absent: Lymphadenopathy - Respiratory Exam Respiratory Exam: Decreased Breath Sounds - Cardiovascular Exam Cardiovascular Exam: REGULAR RHYTHM - GI/Abdominal Exam GI & Abdominal Exam: Soft. absent: Tenderness - Rectal Exam Rectal Exam: Deferred - Extremities Exam Extremities Exam: absent: Pedal Edema - Back Exam Back Exam: absent: CVA tenderness (L), CVA tenderness (R) - Neurological Exam Neurological Exam: Alert, Awake, Normal Gait, Oriented x3 Neuro motor strength exam: Left Upper Extremity: 5, Right Upper Extremity: 5, Left Lower Extremity: 5, Right Lower Extremity: 5 - Psychiatric Exam Psychiatric exam: Normal Mood - Skin Skin Exam: Dry Assessment and Plan (1) New onset type 2 diabetes mellitus Status: Acute (2) Gout Status: Chronic (3) Cellulitis of foot Status: Suspected - Assessment and Plan (Free Text) Assessment: cleared for d/c on PO rx
--- NOTE | 2017-05-05 14:26 | PN ---
DATE: ENDO FOLLOWUP NOTE LOCATION: Room 664. SUBJECTIVE: This is a 62-year-old male with recent diagnosis of new-onset type 2 diabetes started on oral hypoglycemic therapy given in combination and is now being followed closely for metabolic management. He is receiving IV antibiotics for management of right foot cellulitis as noted. His latest glucose values have ranged from 144-172 and 252 mg/dL. His latest chemistry showed BUN of 17, sodium of 142, potassium of 4.0, chloride of 104, CO2 of 27, glucose of 172, and creatinine of 1.1. So at this time, we will continue the oral hypoglycemic drug therapy given in combination with metformin at 850 mg b.i.d. and glipizide at 10 mg b.i.d. before meals as ordered. We will titrate incrementally as indicated to optimize metabolic control. He is scheduled for possible discharge today as noted. We will follow. Amina Stewart MD
[2017-05-05 16:29] VITALS: BP 134/78; PULSE 62; TEMP 97.7; O2SAT 96
== END 2017-05-05 16:30 | disposition home or self-care (01) | DRG 603 ==
LOC: H.ER 19:11 → H.ERHOLD 22:42 → H.MEDSURG1 05-03 01:00
PROVIDERS: ADMIT Internal Medicine; ATTEND Internal Medicine
DX: L03.115 Cellulitis of right lower limb (principal); M10.9 Gout, unspecified; E11.65 Type 2 diabetes mellitus with hyperglycemia; E11.42 Type 2 diabetes mellitus with diabetic polyneuropathy; I10 Essential (primary) hypertension; M54.40 Lumbago with sciatica, unspecified side; N40.0 Benign prostatic hyperplasia without lower urinary tract symptoms; Z79.4 Long term (current) use of insulin; Z87.891 Personal history of nicotine dependence

== ENCOUNTER → 2017-08-13 | Day surgery (SDC) | payer OTHER ==
[2017-08-07 09:11] VITALS: BMI 28.8
[~2017-08-13] MED LIST: HYDROmorphone 0.5 mg/0.5 ml ISec IVP PRN; Lactated Ringer's 1,000 ML IV ONE; Lactated Ringer's 1,000 ML IV SCH; Midazolam 2 MG/2 ML VIAL ONE; Propofol 10 mg/ml Inj (20 ML) ONE; Sevoflurane - Inhalation Anesthetic Liq (250 ml) ONE; cefTRIAXone (Rocephin) 1 gm Inj ONE
[2017-08-13] MEDS: Bupivacaine HCl 0.5% PF (10 ml) Inj ONE ×2 (08:26→08:40)
[2017-08-13 11:05] VITALS: RESP 18
[2017-08-13 12:58] VITALS: O2SAT 96
[2017-08-13 13:00] VITALS: BP 134/86; PULSE 59; TEMP 97.4
--- NOTE | 2017-08-14 06:47 | OP ---
PROCEDURE DATE: 08/13/2017 PREOPERATIVE DIAGNOSIS: Phimosis. POSTOPERATIVE DIAGNOSIS: Phimosis. PROCEDURE: Circumcision. DESCRIPTION OF PROCEDURE: The patient was placed on the operating room table in a supine position. The area of the groin was draped and prepped in a sterile manner. At this time, I demarcated the area that was going to be removed in the foreskin and with a circumferential incision using a scalpel, I incised into the distal portion and then the proximal portion of the resectable skin, removed the redundant foreskin, cauterized active bleeders, and then reapproximated the skin edges with multiple interrupted 4-0 chromic suture. When this was done, I then placed a compressive Coban dressing over the wound site. Then, the patient was taken from the operating room in good condition. I am going to estimate the blood loss to be about 10 mL. Zacarias Moe MD
== END | disposition home or self-care (01) ==
LOC: H.OPSURG 06:31
PROVIDERS: ATTEND Urology
DX: N47.1 Phimosis (principal); E11.9 Type 2 diabetes mellitus without complications; M13.862 Other specified arthritis, left knee; M13.861 Other specified arthritis, right knee
CPT/HCPCS: 54161; 82948; 88304; J0696; J1170; J2001; J2250; J2704; J3010; J7120